=== PATIENT | male | born 1940 | race Caucasian/White ===

== ENCOUNTER → 2020-12-27 | Outpatient (CLI) | payer MEDICARE, OTHER ==
--- NOTE | 2020-12-27 15:25 | XR ---
EXAMINATION TYPE: XR chest 2V DATE OF EXAM: 12/27/2020 COMPARISON: NONE HISTORY: Increasing shortness of breath over last few years. TECHNIQUE: Frontal and lateral views of the chest are obtained. FINDINGS: There is background chronic emphysematous and pulmonary fibrotic change without suspicious focal air space opacity, pleural effusion, or pneumothorax seen. The cardiac silhouette size is mil dly enlarged with atherosclerotic aorta. Metallic stent graft in the abdominal aorta is partially mansoor ged. Multilevel spurring in the spine. IMPRESSION: Mild cardiomegaly and chronic changes without acute pulmonary process.
== END | disposition home or self-care (01) ==
LOC: RADXRYALE 14:46
PROVIDERS: ATTEND Family Medicine
DX: I51.7 Cardiomegaly (principal); R91.8 Other nonspecific abnormal finding of lung field
CPT/HCPCS: 71046

== ENCOUNTER → 2022-09-12 | Outpatient (CLI) | payer MEDICARE, OTHER ==
--- NOTE | 2022-09-12 17:32 | XR ---
EXAMINATION TYPE: XR chest 2V DATE OF EXAM: 09/12/2022 COMPARISON: 12/27/2020 HISTORY: 82-year-old male [id number] shortness of breath TECHNIQUE: Frontal and lateral views FINDINGS: Heart upper limits of normal in size. Atherosclerotic arch calcifications. Hazy lower lung densities are noted. No consolidation or pleural effusion. IMPRESSION: Hazy lower lung density may in part relate to overlying soft tissue. Consider CT of the chest for mor e detailed parenchymal assessment such as for groundglass or fibrotic change.
== END | disposition home or self-care (01) ==
LOC: RADXRYALE 15:49
PROVIDERS: ATTEND Family Medicine
DX: R06.02 Shortness of breath (principal)
CPT/HCPCS: 71046

== ENCOUNTER → 2022-12-16 | Outpatient (CLI) | payer MEDICARE ==
[2022-12-16 18:24] LABS: HCT 42.3 % (39.6-50.0); HGB 13.4 g/dL (13.0-17.0); MCH 30.4 pg (27.0-32.0); MCHC 31.7 g/dL (32.0-37.0); MCV 95.9 fL (80.0-97.0); Mean Platelet Volume 10.9 fL (9.5-12.2); NRBC Per 100 WBC 0.2 /100 WBCS (0.0-0.0); Platelet Count 398 X 10*3/uL (140-440); RBC 4.41 X 10*6/uL (4.40-5.60); RDW 14.7 % (11.5-14.5)
[2022-12-16 19:28] LABS: African American GFR (CKD) 63.9 (60.0-200.0); Anion Gap 12.3 mmol/L (10.00-18.00); Blood Urea Nitrogen 15.6 mg/dL (9.0-27.0); Carbon Dioxide 22.1 mmol/L (20.0-27.5); Non-African American GFR(CKD) 55.1 (60.0-200.0); Potassium 5.2 mmol/L (3.5-5.5)
== END | disposition home or self-care (01) ==
LOC: LABPAT 12:07
PROVIDERS: ATTEND Internal Medicine
DX: Z01.812 Encounter for preprocedural laboratory examination (principal); R07.9 Chest pain, unspecified
CPT/HCPCS: 80051; 82565; 84520; 85027

== ENCOUNTER 2022-12-22 07:09 | Day surgery (SDC) | payer MEDICARE, OTHER ==
[~2022-12-22 07:09] MED LIST: ALPRAZolam 0.25 MG TAB PO PRN; ALPRAZolam 0.5 MG TAB PO PRN; ASPIRIN 325 MG TAB PO STA; ATORVASTATIN 80 MG TAB PO STA; HEPARIN SODIUM,PORCINE 10,000 UNIT in SODIUM CHLORIDE 0.9% 1,000 ML IRRIGATION PRN; HEPARIN SODIUM,PORCINE 2,500 UNIT in SODIUM CHLORIDE 0.9% 250 ML IRRIGATION PRN; NITROGLYCERIN SL TABS 0.4 MG TAB SUBLINGUAL PRN; SODIUM CHLORIDE 0.9% 1,000 ML in EMPTY BAG 1 BAG IV SCH
[2022-12-22] MEDS ORDERED: SODIUM CHLORIDE 0.9% 1,000 ML IV ONE (07:29)
[2022-12-22 07:48] VITALS: RESP 16; TEMP 97.4
[2022-12-22] MEDS ORDERED: VERAPAMIL 2.5 MG/ML 2 ML AMP ONE (08:48)
[2022-12-22] MEDS ORDERED: fentaNYL (PF) 50 MCG/ML 2 ML AMP ONE (09:04)
[2022-12-22] MEDS ORDERED: HEPARIN SODIUM 1,000 UN/ML (10ML VL) ONE (09:05)
[2022-12-22] MEDS ORDERED: fentaNYL (PF) 50 MCG/1 ML VIAL IVP ONE (09:13)
[2022-12-22] MEDS ORDERED: MIDAZOLAM 2 MG/2 ML VIAL IVP ONE (09:13)
[2022-12-22] MEDS ORDERED: LIDOCAINE 1% INJ 10MG/ML (5 ML VIAL-PF) SQ ONE (09:14)
[2022-12-22] MEDS ORDERED: VERAPAMIL SYRINGE (5 MG/10 ML) INTRAARTER ONE (09:15)
[2022-12-22] MEDS ORDERED: HEPARIN SODIUM 1,000 UN/ML (10ML VL) IV ONE (09:17)
[2022-12-22] MEDS ORDERED: IOPAMIDOL-370 100ML BTL INJ ONE (09:24)
--- NOTE | 2022-12-22 09:32 | P.CARDCATH ---
Description of Procedure: PROCEDURES PERFORMED: Left heart catheterization, bilateral coronary angiography INDICATION: Abnormal stress test, angina CONSENT:I have discussed the risks, benefits and alternative therapies for the above-mentioned procedure and for both sedation/analgesia as well as necessary blood product administration, if indicated, as they pertain to this patient. The patient has indicated understanding and acceptance of the risks and procedures discussed. PROCEDURE: After the risks, benefits and alternatives of the above mentioned pro cedure explained in detail with the patient, informed consent was obtained. Patient was taken to the catheterization lab and prepped and draped in usual fashion. 1% lidocaine was used to anesthetize the right radial artery. A 6- Dutch sheath was placed in the right radial artery using modified Seldinger technique. Left coronary angiography was performed with a 5-Dutch JL 3.5 catheter and right coronary angiography was performed with a 5-Dutch JR5 catheter in various views. A 5-Dutch FR5 catheter was inserted into the left ventricle and pressure measurements were obtained. The right radial sheath was removed and a TR band was placed with hemostasis achieved. The patient tolerated the procedure well. Patient was transported back to the post catheterization holding area in stable condition. Conscious Sedation: Patient was monitored under the direct supervision of vision of myself for conscious sedation using Versed and fentanyl for a total duration of 12 minutes HEMODYNAMICS: Aorta: 131/62 LV: 122/5, LVEDP 15 SELECTIVE CORONARY ARTERIOGRAPHY: LEFT MAIN: The left main is a large caliber vessel which bifurcates into the LAD and circumflex. There is a proximal left main 20% stenosis LEFT ANTERIOR DESCENDING CORONARY ARTERY: LAD is a large caliber vessel which wraps around to the apex. There is a proximal LAD 40% stenosis in the mid LAD 30% stenosis. There are [id number] collaterals to the RCA. LEFT CIRCUMFLEX CORONARY ARTERY: Left circumflex is a moderate caliber vessel with mild luminal irregularities RIGHT CORONARY ARTERY: The right coronary artery is a large caliber vessel which gives off a PDA and PLV branch and is the dominant vessel. There is diffuse disease of the RCA with a mid RCA 90% stenosis and a more distal 100% stenosis. FINAL IMPRESSION: 1. CAD as described above including 30-40% LAD stenosis, 20% left main stenosis and 100% distal RCA stenosis with [id number] collaterals 2. Normal left sided filling pressures PLAN: 1. Aggressive risk factor modification per most recent ACC/AHA guidelines. 2. Optimize antianginal medications as able. If still having angina may consider PCI BROWNING PROCESSOR RCA.
[2022-12-22] MEDS ORDERED: LOSARTAN 50 MG TAB PO STA (10:37)
[2022-12-22] MEDS ORDERED: METOPROLOL SUCCINATE (ER) 100 MG TAB.ER.24H PO STA (10:37)
[2022-12-22 20:07] VITALS: BP 142/67; PULSE 62
== END 2022-12-22 14:00 | disposition home or self-care (01) ==
LOC: CATHCVL 07:09
PROVIDERS: ATTEND Internal Medicine
DX: I25.119 Atherosclerotic heart disease of native coronary artery with unspecified angina pectoris (principal); N18.9 Chronic kidney disease, unspecified; I12.9 Hypertensive chronic kidney disease with stage 1 through stage 4 chronic kidney disease, or unspecified chronic kidney disease; E78.5 Hyperlipidemia, unspecified; J44.9 Chronic obstructive pulmonary disease, unspecified; Z87.891 Personal history of nicotine dependence; F10.20 Alcohol dependence, uncomplicated; Z82.49 Family history of ischemic heart disease and other diseases of the circulatory system; Z79.51 Long term (current) use of inhaled steroids; Z79.02 Long term (current) use of antithrombotics/antiplatelets; Z79.899 Other long term (current) drug therapy; Z79.891 Long term (current) use of opiate analgesic
CPT/HCPCS: 93458; C1769; C1894; J2250; J2001; J1644; Q9967; J3010

== ENCOUNTER → 2023-04-24 | Outpatient (CLI) | payer MEDICARE ==
--- NOTE | 2023-04-24 15:14 | XR ---
EXAMINATION TYPE: XR chest 2V DATE OF EXAM: 04/24/2023 COMPARISON: 09/12/22 HISTORY: Shortness of breath TECHNIQUE: Frontal and lateral views of the chest are obtained. FINDINGS: Scattered senescent parenchymal changes noted. Hyperinflation compatible with COPD. No evidence for infiltrate. No evidence for atelectasis. Small left effusion. Heart size is stable. Mediastinal structures are stable and grossly unremarkable. No evidence for hilar prominence. Degenerative changes dorsal spine. IMPRESSION: 1. No evidence for acute pulmonary disease.
== END | disposition home or self-care (01) ==
LOC: RADXRYALE 14:59
PROVIDERS: ATTEND Family Medicine
DX: R06.02 Shortness of breath (principal)
CPT/HCPCS: 71046

== ENCOUNTER 2024-11-20 23:10 | Inpatient (IN) | payer MEDICARE ==
[2024-11-20 23:16] LABS: Glucose,Whole Blood 421 mg/dL (70-110)
--- NOTE | 2024-11-20 23:38 | ED ---
General Adult HPI - General Chief complaint: Chest Pain Stated complaint: Chest pain Time Seen by Provider: 11/20/24 23:12 Source: patient, EMS, RN notes reviewed, old records reviewed Mode of arrival: EMS Limitations: no limitations - History of Present Illness Initial comments: 84-year-old male presenting for evaluation of chest discomfort and mild dyspnea. Patient has some nausea associated with the symptoms symptoms began earlier today. Patient has extensive past medical history currently undergoing rehabilitation at the care home. He denies lower extremity pain or swelling. He also reports dysuria. No measured fever. - Related Data Home Medications Medication Instructions Recorded Confirmed Acetaminophen Tab [Tylenol Tab] 500 mg PO Q4H PRN 12/18/22 12/22/22 Albuterol Nebulized [Ventolin 2.5 mg INHALATION Q6H 12/18/22 12/18/22 Nebulized] Albuterol Sulfate [Proair 1 puff INHALATION Q6H PRN 12/18/22 12/18/22 Respiclick] Budesonide-Formot 160-4.5 Mcg 2 puff INHALATION DAILY 12/18/22 12/22/22 [Symbicort 160-4.5 Mcg Inhaler] Clopidogrel [Plavix] 75 mg PO DAILY 12/18/22 12/22/22 Fenofibrate [Lofibra] 160 mg PO DAILY 12/18/22 12/22/22 Fluticasone Nasal [place] [Flonase 2 sprays INHALATION DAILY 12/18/22 12/22/22 Nasal [place]] Lansoprazole [Prevacid] 30 mg PO DAILY 12/18/22 12/22/22 Montelukast [Singulair] 10 mg PO DAILY 12/18/22 12/22/22 Multivitamins, Thera [Multivitamin 1 tab PO DAILY 12/18/22 12/22/22 (formulary)] Oxybutynin Chloride [Oxybutynin 15 mg PO DAILY 12/18/22 12/22/22 Chloride ER] Metoprolol Succinate (ER) [Toprol 50 mg PO HS 12/22/22 12/22/22 Xl] Metoprolol Succinate (ER) [Toprol 150 mg PO DAILY 12/22/22 12/22/22 Xl] Previous Rx's Medication Instructions Recorded Losartan [Cozaar] 50 mg PO DAILY #90 tab 12/22/22 Allergies Allergy/AdvReac Type Severity Reaction Status Date / Time No Known Allergies Allergy Verified 11/20/24 23:16 Review of Systems ROS Statement: Those systems with pertinent positive or pertinent negative responses have been documented in the HPI. ROS Other: All systems not noted in ROS Statement are negative. Past Medical History Past Medical History: COPD, Diabetes Mellitus, Hyperlipidemia, Hypertension Past Surgical History: Hernia Repair Smoking Status: Former smoker Past Alcohol Use History: None Reported Past Drug Use History: None Reported General Exam Limitations: no limitations General appearance: alert, in no apparent distress Head exam: Present: atraumatic, normocephalic Eye exam: Present: normal appearance, PERRL Respiratory exam: Present: decreased breath sounds. Absent: respiratory distress Cardiovascular Exam: Present: tachycardia, irregular rhythm GI/Abdominal exam: Present: soft. Absent: distended, tenderness, guarding Extremities exam: Present: normal inspection, normal capillary refill. Absent: calf tenderness Neurological exam: Present: alert, oriented X3 Psychiatric exam: Present: normal affect, normal mood Skin exam: Present: warm, dry, intact, pallor Course Vital Signs 11/20/24 11/20/24 11/20/24 23:16 23:27 23:35 Temperature 98.0 F Pulse Rate 120 H Respiratory 19 19 Rate Blood Pressure 138/81 O2 Sat by Pulse 82 L 92 L Oximetry 11/21/24 11/21/24 01:25 02:00 Temperature Pulse Rate 91 91 Respiratory 22 21 Rate Blood Pressure 117/66 128/66 O2 Sat by Pulse 97 95 Oximetry Medical Decision Making - Medical Decision Making Was pt. sent in by a medical professional or institution (, PA, PROTOTYPE ENGINEER, urgent care, hospital, or care home...) When possible be specific @ -No Did you speak to anyone other than the patient for history (EMS, parent, family, police, friend...)? What history was obtained from this source @ -No Did you review nursing and triage notes (agree or disagree)? Why? @ -I reviewed and agree with nursing and triage notes Were old charts reviewed (outside hosp., previous admission, EMS record, old E KG, old radiological studies, urgent care reports/EKG's, care home records)? Report findings @ -No old charts were reviewed EKG interpreted by me (3pts min.). @ -Sinus tachycardia versus atrial fibrillation with RVR with a rate of 120, right bundle branch block, QRS duration 130, QTc [address] segment elevation. X-rays interpreted by me (1pt min.). @ -Chest x-ray showing left-sided pleural effusion and central pulmonary vascular congestion CT interpreted by me (1pt min.). @ -None done U/S interpreted by me (1pt. min.). @ -None done What testing was considered but not performed or refused? (CT, X-rays, U/S, labs)? Why? @ -None What meds were considered but not given or refused? Why? @ -None Did you discuss the management of the patient with other professionals (professionals i.e. Dr., PA, PROTOTYPE ENGINEER, lab, RT, psych nurse, social sciences research scientist, cross tie turner, teacher, global chief experience officer, manager of case)? Give summary @ -Case discussed with Dr. Ortiz who will admit. Case discussed with Dr. Lr covering for cardiology, regarding elevated troponin and recent GI bleed. No heparin at this time, patient is chest pain-free. Was smoking cessation discussed for >3mins.? @ -No Was critical care preformed (if so, how long)? @ -No Were there social determinants of health that impacted care today? How? ( Homelessness, low income, unemployed, alcoholism, drug addiction, transportation, low edu. Level, literacy, decrease access to med. care, nursing home, rehab)? @ -No Was there de-escalation of care discussed even if they declined (Discuss DNR or withdrawal of care, Hospice)? DNR status @ -No What co-morbidities impacted this encounter? (DM, HTN, Smoking, COPD, CAD, Cancer, CVA, ARF, Chemo, Hep., AIDS, mental health diagnosis, sleep apnea, morbid obesity)? @ -Diabetes, CHF, debility Was patient admitted / discharged? Hospital course, mention meds given and route, prescriptions, significant lab abnormalities, going to OR and other pertinent info. @ -84-year-old male presenting from the care home with us chest pain and dyspnea as well as urinary frequency urgency and dysuria. Patient does test positive for UTI and is started on ceftriaxone. Urine culture pending. Patient has minimally elevated troponin at 0.038 and mildly elevated BNP. His chest x- ray does show CHF. He is given Lasix in the emergency department. He will be admitted for serial cardiac enzymes. He is admitted to Dr. Ortiz. Cardiology is placed on consult. Undiagnosed new problem with uncertain prognosis? @ -No Drug Therapy requiring intensive monitoring for toxicity (Heparin, Nitro, Insulin, Cardizem)? @ -No Were any procedures done? @ -No Diagnosis/symptom? @ -Chest pain, CHF, UTI Acute, or Chronic, or Acute on Chronic? @Acute Uncomplicated (without systemic symptoms) or Complicated (systemic symptoms)? @ -Default Side effects of treatment? @ -No Exacerbation, Progression, or Severe Exacerbation? @ -No Poses a threat to life or bodily function? How? (Chest pain, [place], [place], pneumonia, PE, COPD, DKA, ARF, appy, cholecystitis, CVA, Diverticulitis, Homicidal, Suicidal, threat to staff... and all critical care pts) @ -Yes, [place], CHF, sepsis - Lab Data Result diagrams: 11/20/24 23:16 11/20/24 23:28 Lab Results 11/20/24 11/20/24 11/20/24 Range/Units 23:14 23:16 23:28 WBC 16.2 H (3.8-10.6) k/uL RBC 3.44 L (4.30-5.90) m/uL Hgb 9.5 L (13.0-17.5) gm/dL Hct 31.3 L (39.0-53.0) % MCV 91.0 (80.0-100.0) fL MCH 27.7 (25.0-35.0) pg MCHC 30.5 L (31.0-37.0) g/dL RDW 16.4 H (11.5-15.5) % Plt Count 443 (150-450) k/uL MPV 6.7 Neutrophils % 92 % Lymphocytes % 3 % Monocytes % 5 % Eosinophils % 0 % Basophils % 0 % Neutrophils # 14.8 H (1.3-7.7) k/uL Lymphocytes # 0.4 L (1.0-4.8) k/uL Monocytes # 0.8 (0-1.0) k/uL Eosinophils # 0.1 (0-0.7) k/uL Basophils # 0.0 (0-0.2) k/uL Hypochromasia Marked Anisocytosis Slight PT (10.0-12.5) sec INR (<1.2) APTT (22.0-30.0) sec Sodium 133 L (137-145) mmol/L Potassium 4.3 (3.5-5.1) mmol/L Chloride 94 L (98-107) mmol/L Carbon Dioxide 31 H (22-30) mmol/L Anion Gap 8 mmol/L BUN 23 H (9-20) mg/dL Creatinine 0.80 (0.66-1.25) mg/dL Est GFR (CKD-EPI)AfAm >90 (>60 ml/min/1.73 sqM) Est GFR (CKD-EPI)NonAf 84 (>60 ml/min/1.73 sqM) Glucose 398 H (74-99) mg/dL POC Glucose (mg/dL) 421 H (70-110) mg/dL POC Glu Blower Mechanic ID [facility] Calcium 8.8 (8.4-10.2) mg/dL Magnesium 1.4 L (1.6-2.3) mg/dL Total Bilirubin 0.5 (0.2-1.3) mg/dL AST 26 (17-59) U/L ALT 34 (4-49) U/L Alkaline Phosphatase 84 (38-126) U/L Troponin I (0.000-0.034) ng/mL NT-Pro-B Natriuret Pep 1620 pg/mL Total Protein 5.6 L (6.3-8.2) g/dL Albumin 3.0 L (3.5-5.0) g/dL Urine Color Urine Appearance (Clear) Urine pH (5.0-8.0) Ur Specific [place] (1.001-1.035) Urine Protein (Negative) Urine Glucose (UA) (Negative) Urine Ketones (Negative) Urine Blood (Negative) Urine Nitrite (Negative) Urine Bilirubin (Negative) Urine Urobilinogen (<2.0) mg/dL Ur Leukocyte Esterase (Negative) Urine RBC (0-5) /hpf Urine WBC (0-5) /hpf Calcium Oxalate Crystal (None) /hpf Urine Bacteria (None) /hpf Hyaline Casts (0-2) /lpf Urine Mucus (None) /hpf Urine Yeast (Budding) (None) /hpf 11/20/24 11/21/24 11/21/24 Range/Units 23:28 00:27 00:45 WBC (3.8-10.6) k/uL RBC (4.30-5.90) m/uL Hgb (13.0-17.5) gm/dL Hct (39.0-53.0) % MCV (80.0-100.0) fL MCH (25.0-35.0) pg MCHC (31.0-37.0) g/dL RDW (11.5-15.5) % Plt Count (150-450) k/uL MPV Neutrophils % % Lymphocytes % % Monocytes % % Eosinophils % % Basophils % % Neutrophils # (1.3-7.7) k/uL Lymphocytes # (1.0-4.8) k/uL Monocytes # (0-1.0) k/uL Eosinophils # (0-0.7) k/uL Basophils # (0-0.2) k/uL Hypochromasia Anisocytosis PT 10.4 (10.0-12.5) sec INR 0.9 (<1.2) APTT 18.5 L (22.0-30.0) sec Sodium (137-145) mmol/L Potassium (3.5-5.1) mmol/L Chloride (98-107) mmol/L Carbon Dioxide (22-30) mmol/L Anion Gap mmol/L BUN (9-20) mg/dL Creatinine (0.66-1.25) mg/dL Est GFR (CKD-EPI)AfAm (>60 ml/min/1.73 sqM) Est GFR (CKD-EPI)NonAf (>60 ml/min/1.73 sqM) Glucose (74-99) mg/dL POC Glucose (mg/dL) (70-110) mg/dL POC Glu Blower Mechanic ID Calcium (8.4-10.2) mg/dL Magnesium (1.6-2.3) mg/dL Total Bilirubin (0.2-1.3) mg/dL AST (17-59) U/L ALT (4-49) U/L Alkaline Phosphatase (38-126) U/L Troponin I 0.038 H* (0.000-0.034) ng/mL NT-Pro-B Natriuret Pep pg/mL Total Protein (6.3-8.2) g/dL Albumin (3.5-5.0) g/dL Urine Color Yellow Urine Appearance Cloudy (Clear) Urine pH 5.5 (5.0-8.0) Ur Specific [place] 1.025 (1.001-1.035) Urine Protein 1+ H (Negative) Urine Glucose (UA) 4+ H (Negative) Urine Ketones Trace H (Negative) Urine Blood Negative (Negative) Urine Nitrite Negative (Negative) Urine Bilirubin Negative (Negative) Urine Urobilinogen 2.0 (<2.0) mg/dL Ur Leukocyte Esterase Large H (Negative) Urine RBC 68 H (0-5) /hpf Urine WBC >182 H (0-5) /hpf Calcium Oxalate Crystal Many H (None) /hpf Urine Bacteria Few H (None) /hpf Hyaline Casts 26 H (0-2) /lpf Urine Mucus Few H (None) /hpf Urine Yeast (Budding) Many H (None) /hpf Disposition Clinical Impression: CHF (congestive heart failure), UTI (urinary tract infection), Chest pain Disposition: ADMITTED IP TO THIS HOSP Condition: Stable Is patient prescribed a controlled substance at d/c from ED?: No Time of Disposition: 02:24
[2024-11-20 23:44] LABS: Anisocytosis Slight; Basophils % (A) 0 %; Eosinophils # (A) 0.1 k/uL (0-0.7); Eosinophils % (A) 0 %; HCT 31.3 % (39.0-53.0); HGB 9.5 gm/dL (13.0-17.5); Hypochromasia Marked; Lymphocytes # (A) 0.4 k/uL (1.0-4.8); Lymphocytes % (A) 3 %; MCH 27.7 pg (25.0-35.0); MCHC 30.5 g/dL (31.0-37.0); Mean Platelet Volume 6.7; Monocytes # (A) 0.8 k/uL (0-1.0); Monocytes % (A) 5 %; Neutrophils # (A) 14.8 k/uL (1.3-7.7); Neutrophils % (A) 92 %; Platelet Count 443 k/uL (150-450); RBC 3.44 m/uL (4.30-5.90); RDW 16.4 % (11.5-15.5); WBC 16.2 k/uL (3.8-10.6)
[2024-11-20 23:52] LABS: ALT 34 U/L (4-49); AST 26 U/L (17-59); African American GFR (CKD) >90 (>60 ml/min/1.73 sqM); Alkaline Phosphatase 84 U/L (38-126); Anion Gap 8 mmol/L; Blood Urea Nitrogen 23 mg/dL (9-20); Calcium 8.8 mg/dL (8.4-10.2); Carbon Dioxide 31 mmol/L (22-30); Chloride 94 mmol/L (98-107); Glucose 398 mg/dL (74-99); Magnesium 1.4 mg/dL (1.6-2.3); Non-African American GFR(CKD) 84 (>60 ml/min/1.73 sqM); Potassium 4.3 mmol/L (3.5-5.1); Sodium 133 mmol/L (137-145); Total Bilirubin 0.5 mg/dL (0.2-1.3); Total Protein 5.6 g/dL (6.3-8.2)
[2024-11-20 23:59] LABS: NT-Pro-B-Type Natriuretic Pept 1620 pg/mL
[2024-11-21 00:54] LABS: INR 0.9 (<1.2); Prothrombin Time 10.4 sec (10.0-12.5)
[2024-11-21 01:06] LABS: Partial Thromboplastin Time 18.5 sec (22.0-30.0)
[2024-11-21 01:44] LABS: Appearance,Urine Cloudy (Clear); Bacteria,Urine Few /hpf; Bilirubin,Urine Negative (Negative); Blood,Urine Negative (Negative); Budding Yeast,Urine Many /hpf; Calcium Oxalate Crystals,Urine Many /hpf; Color,Urine Yellow; Glucose,Urine (UA) 4+ (Negative); Hyaline Casts,Urine 26 /lpf (0-2); Ketones,Urine Trace (Negative); Leukocyte Esterase,Urine Large (Negative); Mucus,Urine Few /hpf; Nitrite,Urine Negative (Negative); PH, Urine 5.5 (5.0-8.0); Protein,Urine 1+ (Negative); RBC,Urine 68 /hpf (0-5); Specific Gravity,Urine 1.025 (1.001-1.035); WBC,Urine >182 /hpf (0-5)
--- NOTE | 2024-11-21 01:59 | XR ---
EXAM: XR Chest, 2 Views CLINICAL HISTORY: ITS.REASON XR Reason: Chest Pain TECHNIQUE: Frontal and lateral views of the chest. COMPARISON: Prior chest x-ray from November 04, 2024. FINDINGS: Lungs: Bronchitis with pneumonitis. Pleural space: Large left pleural effusion. No pneumothorax. Heart: Unremarkable. No cardiomegaly. Mediastinum: Unremarkable. Normal mediastinal contour. Bones/joints: Unremarkable. No acute fracture. IMPRESSION: Bronchitis with pneumonitis and large left pleural effusion.
[2024-11-21] MEDS: cefTRIAXone IN SWFI 1,000 MG/10 ML SYRINGE IVP STA (02:16)
[2024-11-21] MEDS ORDERED: NALOXONE 0.4 MG/ML 1 ML VIAL IV PRN (02:18)
[2024-11-21] MEDS: FUROSEMIDE 10 MG/ML 4 ML VIAL IV STA (02:28)
[2024-11-21] MEDS: MAGNESIUM SULFATE-D5W PMX 1 GM in DEXTROSE/WATER 1 100ML.BAG IVPB ONE ×2 (02:29→06:25)
[2024-11-21] MEDS ORDERED: HEPARIN SODIUM 1,000 UN/ML (10ML VL) IV PRN (04:44)
[2024-11-21] MEDS: HEPARIN SOD,PORK IN 0.45% NACL 25,000 UNIT in 0.45% NACL 1 250ML.BAG IV SCH (04:53)
[2024-11-21] MEDS: HEPARIN SODIUM 1,000 UN/ML (10ML VL) IV ONE (04:53)
--- NOTE | 2024-11-21 05:01 | P.HPIM ---
History of Present Illness H&P Date: 11/21/24 Chief Complaint: Chest pain, urinary tract infection Patient is a 84-year-old male with History of AAA status post endovascular repair, hypertension, previous tobacco abuse and quit 30 years ago, hyperlipidemia, mild alcohol use, coronary artery disease including 30 to 40% L AD stenosis, 20% left main stenosis and 100% distal RCA stenosis with [id number] collaterals, type II diabetes mellitus, cirrhosis and COPD normally on 2 L continuous presented to the emergency department for chest pain and shortness of breath. Patient has had significant hospitalization history over the past 2 months and in August had to get the fluid drained from his chest cavity at [facility]. Patient is currently living at [facility] for rehab. Patient reported that while using the bathroom last night around 10 PM, he had a sudden onset pressure-like substernal chest pain that started when he was standing up from the toilet. He has never felt anything like this before. He reports the chest pain to be 8 out of 10 intensity, constant, nonradiating, did not improve with sitting down and supplemental oxygen. Alongside with the chest pain, patient also reported shortness of breath that started around similar time. Patient also endorsed periumbilical belly pain and dysuria that has been going on for the past few days. Did endorse an episode of vomiting earlier last night around 10 PM with no hematemesis. Patient denies fever, chills, lightheadedness, dizziness, diarrhea, constipation, melena/hematochezia, lower extremity swelling, tingling/numbness sensation in upper and lower extremities. ED documentation reviewed. In the ED patient was treated with Rocephin 1000 mg I V x 1, Lasix 40 mg IV x 1 Vitals on admission temperature 98, pulse rate 91, respiratory rate 22, blood pressure 117/66, O2 sat 97% on nasal cannula at 5 L/min EKG independently interpreted as sinus tachycardia with occasional supraventricular premature complexes with a ventricular rate of 120 bpm, possible right ventricular hypertrophy, QTc interval of 398 ms, with ST-segment depression noted in leads V2-V4. CXR shows bronchitis with pneumonitis and large left pleural effusion. Labs on admission show WBC 16.2, hemoglobin 9.5, hematocrit 31.3, platelets 443, neutrophils 14.8, PT 10.4, PTT 18.5, INR 0.9, sodium 133, potassium 4.3, chloride 94, carbon dioxide 31, BUN 23, creatinine 0.8, glucose 398, magnesium 1.4, troponin 0.038, BNP 1620 UA shows cloudy urine, negative for urine nitrites, large leukocyte esterase, few bacteria Review of systems: Pertinent positives and negatives as discussed in HPI, a complete review of systems was performed and all other systems are negative. PMH: History of AAA status post endovascular repair, hypertension, previous tobacco abuse and quit 30 years ago, hyperlipidemia, mild alcohol use, coronary artery disease including 30 to 40% LAD stenosis, 20% left main stenosis and 100% distal RCA stenosis with [id number] collaterals, type II diabetes mellitus, cirrhosis and COPD normally on 2 L nasal cannula continuous PSH: Adenoidectomy, heart catheterization, hernia repair, tonsillectomy, AAA status post endovascular repair FMH: No pertinent family history Allergies: No known drug allergies Social history: Tobacco: Former smoker Alcohol: None reported Recreational drugs: No drug use Travel: No travel history Sick contacts: No sick contacts Physical examination: Vital signs reviewed General: nontoxic, no distress, appears at stated age Derm: warm, dry, intact Head: atraumatic, normocephalic, symmetric Eyes: EOMI, anicteric sclera Mouth: no lip lesion, mucus membranes moist Cardiovascular: S1 S2 reg, no murmur Lungs: CTA bilateral, no rhonchi, no rales, no accessory muscle use Abdominal: soft, periumbilical region slightly tender to palpation, no distention Musculoskeletal: Excello sized pressure ulcer on the left buttock Extremities: No cyanosis, clubbing, lower extremity swelling Neuro: Alert, Gross neurological examination did not reveal any focal deficits. Cranial nerves II to XII grossly intact. Bilateral upper and lower extremity muscle strength 5 out of 5 and sensation intact. Psych: well appearing, appropriate affect Assessment/Plan: Patient is a 84-year-old male with History of AAA status post endovascular repair, hypertension, previous tobacco abuse and quit 30 years ago, hyperlipidemia, mild alcohol use, coronary artery disease including 30 to 40% LAD stenosis, 20% left main stenosis and 100% distal RCA stenosis with [id number] collaterals, type II diabetes mellitus, cirrhosis and COPD normally on 2 L nasal cannula continuous presented to the emergency department for chest pain and shortness of breath. Patient will be admitted to inpatient medicine service. Active: #. NSTEMI Troponin 0.038, 1.290 Trend troponin Continue cardiac monitoring Consult cardiology Start atorvastatin 40 mg daily Start aspirin 81 mg daily Lipid panel Patient currently chest pain free Hold off on Heparin as patient recently had a large GI bleed requiring transfusions at another facility 2 weeks ago #. Urinary tract infection UA shows cloudy urine, negative for urine nitrites, large leukocyte esterase, few bacteria Rocephin 1000 mg IV x 1 given by ED Start ceftriaxone 1 g IV every 24 hours Obtain urine culture #. Leukocytosis WBC 16.2 Left shift neutrophils 14.8 Likely a result of underlying urinary tract infection Monitor morning CBC #. Normocytic anemia Hemoglobin 9.5 MCV 91 Patient denied hematemesis, melena, hematochezia Monitor morning CBC #. Hyponatremia Sodium 133 Initiate normal saline at 75 cc an hour Monitor morning CMP #. Hyperglycemia, with a history of type 2 diabetes mellitus Blood glucose of 398 Initiate sliding scale insulin Hold home diabetic medications #. Hypomagnesemia Magnesium 1.4 Initiate magnesium sulfate 2 g IV Monitor magnesium level #. Pressure ulcer on the left buttock Consult wound care Chronic: #. Hypertension #. Hyperlipidemia #. GERD #. History of COPD on home oxygen at 2 L/min continuous Resume home meds once confirmed with pharmacy F: No restrictions E: Replete as needed N: Heart healthy diet A: EMS DVT prophylaxis: IPCDs The patient is admitted with an anticipated more than 2 midnight stay for evaluation of chest pain and UTI CODE STATUS: Full code Discussed with: Patient Anticipated discharge place: Home Past Medical History Past Medical History: COPD, Diabetes Mellitus, Hyperlipidemia, Hypertension Additional Past Medical History / Comment(s): type 2 DM, anemia, cirrhosis, plural effusion, History of Any Multi-Drug Resistant Organisms: VRE Past Surgical History: Hernia Repair Additional Past Surgical History / Comment(s): AAA Smoking Status: Former smoker Past Alcohol Use History: None Reported Past Drug Use History: None Reported Medications and Allergies Home Medications Medication Instructions Recorded Confirmed Type Acetaminophen Tab [Tylenol Tab] 500 mg PO Q4H PRN 12/18/22 12/22/22 History Albuterol Nebulized [Ventolin 2.5 mg INHALATION Q6H 12/18/22 12/18/22 History Nebulized] Albuterol Sulfate [Proair 1 puff INHALATION Q6H PRN 12/18/22 12/18/22 History Respiclick] Budesonide-Formot 160-4.5 Mcg 2 puff INHALATION DAILY 12/18/22 12/22/22 History [Symbicort 160-4.5 Mcg Inhaler] Clopidogrel [Plavix] 75 mg PO DAILY 12/18/22 12/22/22 History Fenofibrate [Lofibra] 160 mg PO DAILY 12/18/22 12/22/22 History Fluticasone Nasal [place] [Flonase 2 sprays INHALATION DAILY 12/18/22 12/22/22 History Nasal [place]] Lansoprazole [Prevacid] 30 mg PO DAILY 12/18/22 12/22/22 History Montelukast [Singulair] 10 mg PO DAILY 12/18/22 12/22/22 History Multivitamins, Thera [Multivitamin 1 tab PO DAILY 12/18/22 12/22/22 History (formulary)] Oxybutynin Chloride [Oxybutynin 15 mg PO DAILY 12/18/22 12/22/22 History Chloride ER] Losartan [Cozaar] 50 mg PO DAILY #90 tab 12/22/22 Rx Metoprolol Succinate (ER) [Toprol 50 mg PO HS 12/22/22 12/22/22 History Xl] Metoprolol Succinate (ER) [Toprol 150 mg PO DAILY 12/22/22 12/22/22 History Xl] Allergies Allergy/AdvReac Type Severity Reaction Status Date / Time No Known Allergies Allergy Verified 11/20/24 23:16 Physical Exam Vitals: Vital Signs Temp Pulse Resp BP Pulse Ox 11/21/24 01:25 91 22 117/66 97 11/20/24 23:35 19 11/20/24 23:27 92 L 11/20/24 23:16 98.0 F 120 H 19 138/81 82 L Intake and Output 11/20/24 11/20/24 11/21/24 14:59 22:59 06:59 Other: Weight 79.379 kg Results CBC & Chem 7: 11/20/24 23:16 11/20/24 23:28 Labs: Abnormal Lab Results - Last 24 Hours (Table) 11/20/24 11/20/24 11/20/24 Range/Units 23:14 23:16 23:28 WBC 16.2 H (3.8-10.6) k/uL RBC 3.44 L (4.30-5.90) m/uL Hgb 9.5 L (13.0-17.5) gm/dL Hct 31.3 L (39.0-53.0) % MCHC 30.5 L (31.0-37.0) g/dL RDW 16.4 H (11.5-15.5) % Neutrophils # 14.8 H (1.3-7.7) k/uL Lymphocytes # 0.4 L (1.0-4.8) k/uL APTT (22.0-30.0) sec Sodium 133 L (137-145) mmol/L Chloride 94 L (98-107) mmol/L Carbon Dioxide 31 H (22-30) mmol/L BUN 23 H (9-20) mg/dL Glucose 398 H (74-99) mg/dL POC Glucose (mg/dL) 421 H (70-110) mg/dL Magnesium 1.4 L (1.6-2.3) mg/dL Troponin I (0.000-0.034) ng/mL Total Protein 5.6 L (6.3-8.2) g/dL Albumin 3.0 L (3.5-5.0) g/dL Urine Protein (Negative) Urine Glucose (UA) (Negative) Urine Ketones (Negative) Ur Leukocyte Esterase (Negative) Urine RBC (0-5) /hpf Urine WBC (0-5) /hpf Calcium Oxalate Crystal (None) /hpf Urine Bacteria (None) /hpf Hyaline Casts (0-2) /lpf Urine Mucus (None) /hpf Urine Yeast (Budding) (None) /hpf 11/20/24 11/21/24 11/21/24 Range/Units 23:28 00:27 00:45 WBC (3.8-10.6) k/uL RBC (4.30-5.90) m/uL Hgb (13.0-17.5) gm/dL Hct (39.0-53.0) % MCHC (31.0-37.0) g/dL RDW (11.5-15.5) % Neutrophils # (1.3-7.7) k/uL Lymphocytes # (1.0-4.8) k/uL APTT 18.5 L (22.0-30.0) sec Sodium (137-145) mmol/L Chloride (98-107) mmol/L Carbon Dioxide (22-30) mmol/L BUN (9-20) mg/dL Glucose (74-99) mg/dL POC Glucose (mg/dL) (70-110) mg/dL Magnesium (1.6-2.3) mg/dL Troponin I 0.038 H* (0.000-0.034) ng/mL Total Protein (6.3-8.2) g/dL Albumin (3.5-5.0) g/dL Urine Protein 1+ H (Negative) Urine Glucose (UA) 4+ H (Negative) Urine Ketones Trace H (Negative) Ur Leukocyte Esterase Large H (Negative) Urine RBC 68 H (0-5) /hpf Urine WBC >182 H (0-5) /hpf Calcium Oxalate Crystal Many H (None) /hpf Urine Bacteria Few H (None) /hpf Hyaline Casts 26 H (0-2) /lpf Urine Mucus Few H (None) /hpf Urine Yeast (Budding) Many H (None) /hpf
[2024-11-21] MEDS ORDERED: DEXTROSE 50% SYRINGE 50 ML IVP PRN ×2 (05:38)
[2024-11-21 06:35] LABS: Glucose,Whole Blood 207 mg/dL (70-110)
[2024-11-21] MEDS: NITROGLYCERIN OINT 1 INCH/GM PACKET TOPICAL SCH (09:19)
[2024-11-21 09:20] LABS: Glucose,Whole Blood 202 mg/dL (70-110)
[2024-11-21] MEDS: INSULIN ASPART (NovoLOG) 100 UNIT/ML VIAL SQ SCH ×2 (09:39→18:03)
[2024-11-21] MEDS: ASPIRIN 81 MG PO SCH (09:39)
[2024-11-21] MEDS: ATORVASTATIN 40 MG TAB PO SCH (09:40)
--- NOTE | 2024-11-21 09:41 | P.CON ---
Consult Note - . Consult date: 11/21/24 Assessment/Plan:: wound care consultation: Reason for consultation: Decubitus left buttocks History chief complaint: The patient is a rather poor historian. However, he does tell me's had pressure ulcers before. He has a new ulcer on the posterior aspect of the left buttocks near the sacrum. He is currently hospitalized for confusion and cardiac issues. Pertinent physical examination: Patient has an area of redness on the right buttocks posteriorly just lateral to the sacrum. On the left buttocks just lateral to the sacrum he has an area of some skin breakdown and excoriation. Impression: Stage II decubitus left buttocks. Stage I decubitus right buttocks. Recommendation: At this point would simply try to keep the patient off of the area by rotating him [id number]. A sheets we will orbital cushion may be of some assistance. Would recommend simply using triad as a protective lotion over the areas in question. Bordered foam could also be placed over the triad to add protection. Please let us know if further assistance is needed.
--- NOTE | 2024-11-21 12:01 | P.CRDCN ---
History of Present Illness Consult date: 11/21/24 Requesting physician: Bj Ortiz Reason for Consult (text): chest pain Chief complaint: chest pain, shortness of breath History of present illness: This is a pleasant 84-year-old male patient followed in the past with Dr. Phoenix but most recently has been following with Dr. Ortiz with past medical history of AAA status post endovascular repair, hypertension, prior tobacco abuse quit 30 years ago, hyperlipidemia, CAD, diabetes type 2, COPD. Over the past 2 months has been hospitalized for pleural effusion and required thoracentesis done at [facility]. Also history of recent severe GI bleed with severe anemia requiring transfusion. According to the patient he also underwent placement of a filter by Dr. Francis done recently at [facility]. he has been at [facility] for rehab. Presented to the emergency department with complaints of shortness of breath and sudden onset chest discomfort after getting up off the toilet. At the time my examination patient is resting comfortably in the ER. Denies any current complaints of chest discomfort. Diagnostics -EKG: Sinus tachycardia with right bundle branch block -Chest x-ray: Sinus with pneumonitis and large left pleural effusion -Laboratory studies: Blood cell count 16.2, hemoglobin 9.5, sodium 133, BUN 23, creatinine 0.8, NT proBNP 1620. Troponin 0.038, 1.29 and third pending -Home cardiac medications: Metoprolol succinate 25 mg p.o. daily, Lasix 40 mg p.o. daily, ezetimibe 10 mg p.o. nightly and aspirin 81 mg p.o. daily -Prior stress test: November 2022 inferior ischemia -Echocardiogram: January 2023 EF 50% -Cardiac catheterization: November 2022 30 to 40% LAD stenosis, 20% left main stenosis and 100% distal RCA stenosis with [id number] collaterals Review Of Systems: At the time of my exam: CONSTITUTIONAL: Denies fever or chills. HEENT: Denies blurred vision, vision changes. CARDIOVASCULAR: Denies chest pain. Denies orthopnea. Denies PND. Denies palpitations, dizziness, or syncope. RESPIRATORY: Mild shortness of breath. No wheezing, or cough. Denies hemoptysis. GASTROINTESTINAL: Denies abdominal pain. Denies nausea or vomiting. Denies bleeding. HEMATOLOGIC: Denies bleeding disorders. GENITOURINARY: Denies hematuria. SKIN: Denies puritis. Denies rash. PHYSICAL EXAMINATION: This is a 84-year-old gentleman in no apparent distress at the time of my examination. VITAL SIGNS: Reviewed. HEENT: Head is atraumatic, normocephalic. Pupils are equal, round. Sclerae anicteric. Conjunctivae are clear. Mucous membranes of the mouth are moist. Neck is supple. There is no elevated jugular venous pressure. No carotid bruit is heard. CHEST EXAMINATION: Clear to auscultation bilaterally. No wheezes rales or rhonchi. Respirations even and nonlabored. HEART EXAMINATION: Heart regular, positive S1 and S2. No S3. No S4. Soft systolic murmur. ABDOMEN: Soft, nontender. Bowel sounds are heard. No organomegaly noted. EXTREMITIES: 2+ peripheral pulses with evidence of trace peripheral edema and no calf tenderness noted. NEUROLOGIC EXAMINATION: Patient is awake, alert and oriented x3. Assessment: 1. NSTEMI 2. CAD with known total occluded RCA 3. Recent severe GI bleed requiring transfusions 4. Pleural effusion, status post recent centesis 5. Recent filter insertion Plan: From cardiology's perspective we will obtain a 2D echo with Doppler study. We will obtain records from both [facility] and [facility]. Hold off on heparinizing the patient at this time due to recent severe GI bleed. Continue to trend the troponins. We will continue to follow the patient provide further recommendations accordingly. Thank you kindly for this consultation. Nurse practitioner note has been reviewed, I agree with documented findings and plan of care. Patient was seen and examined. Past Medical History Past Medical History: COPD, Diabetes Mellitus, Hyperlipidemia, Hypertension Additional Past Medical History / Comment(s): type 2 DM, anemia, cirrhosis, plural effusion, History of Any Multi-Drug Resistant Organisms: VRE Past Surgical History: Hernia Repair Additional Past Surgical History / Comment(s): AAA Smoking Status: Former smoker Past Alcohol Use History: None Reported Past Drug Use History: None Reported Medications and Allergies Home Medications Medication Instructions Recorded Confirmed Type Acetaminophen Tab [Tylenol Tab] 1,000 mg PO Q6H PRN 12/18/22 11/21/24 History Multivitamins, Thera [Multivitamin 1 tab PO DAILY 12/18/22 11/21/24 History (formulary)] Amoxic-Pot Clav 875-125Mg 1 tab PO BID 11/21/24 11/21/24 History [Augmentin 875-125] Ascorbic Acid [Vitamin C] 500 mg PO DAILY 11/21/24 11/21/24 History Aspirin 81 mg PO DAILY 11/21/24 11/21/24 History Benzonatate [Tessalon Perles] 100 mg PO TID PRN 11/21/24 11/21/24 History Ezetimibe [Zetia] 10 mg PO HS 11/21/24 11/21/24 History Ferrous Sulfate [Feosol] 325 mg PO DAILY 11/21/24 11/21/24 History Furosemide [Lasix] 40 mg PO DAILY 11/21/24 11/21/24 History INSULIN LISPRO (HumaLOG) [humaLOG] 4 units SQ ACHS 11/21/24 11/21/24 History INSULIN LISPRO (HumaLOG) [humaLOG] See Protocol SQ ACHS 11/21/24 11/21/24 History Insulin Glargine [Lantus Vial] 14 unit SQ DAILY@0600 11/21/24 11/21/24 History Ipratropium-Albuterol Nebulize 3 ml INHALATION RT-Q6H 11/21/24 11/21/24 History [Duoneb 0.5 mg-3 mg/3 ml Soln] Lidocaine 5% Patch [Lidoderm] 1 patch TOPICAL DAILY 11/21/24 11/21/24 History Metoprolol Succinate (ER) [Toprol 25 mg PO DAILY 11/21/24 11/21/24 History Xl] Omeprazole [PriLOSEC] 20 mg PO DAILY 11/21/24 11/21/24 History Salmeterol 50 mcg [Serevent Diskus] 1 puff INHALATION RT-Q12H 11/21/24 11/21/24 History Sennosides/Docusate Sodium [Senna 2 tab PO DAILY 11/21/24 11/21/24 History Plus 8.6-50 mg Tablet] Simethicone Chew [Mylicon Chew] 80 mg PO QID PRN 11/21/24 11/21/24 History Sodium Chloride [Saline Mist] 1 spray EA NOSTRIL Q2H PRN 11/21/24 11/21/24 History Triamcinolone 0.1% Cream [Kenalog 1 applic TOPICAL BID 11/21/24 11/21/24 History 0.1% Cream] Z-Guard 1 applic TOPICAL HS 11/21/24 11/21/24 History guaiFENesin [guaiFENesin Oral 200 mg PO QID PRN 11/21/24 11/21/24 History Solution] methocarbamoL [Robaxin] 500 mg PO TID 11/21/24 11/21/24 History polyethylene glycoL 3350 [Miralax] 17 gm PO DAILY 11/21/24 11/21/24 History predniSONE See Taper PO DAILY 11/21/24 11/21/24 History Allergies Allergy/AdvReac Type Severity Reaction Status Date / Time No Known Allergies Allergy Verified 11/21/24 09:53 Physical Exam Vitals: Vital Signs Temp Pulse Resp BP Pulse Ox 11/21/24 11:19 98 20 114/55 96 11/21/24 09:14 89 20 129/65 98 11/21/24 06:00 85 17 133/80 97 11/21/24 02:00 91 21 128/66 95 11/21/24 01:25 91 22 117/66 97 11/20/24 23:35 19 11/20/24 23:27 92 L 11/20/24 23:16 98.0 F 120 H 19 138/81 82 L Intake and Output 11/20/24 11/21/24 11/21/24 22:59 06:59 14:59 Other: Weight 79.379 kg Results 11/20/24 23:16 11/20/24 23:28 Cardiac Enzymes 11/20/24 11/20/24 11/21/24 Range/Units 23:28 23:28 03:35 AST 26 (17-59) U/L Troponin I 0.038 H* 1.290 H* (0.000-0.034) ng/mL Coagulation 11/21/24 Range/Units 00:27 PT 10.4 (10.0-12.5) sec APTT 18.5 L (22.0-30.0) sec CBC 11/20/24 Range/Units 23:16 WBC 16.2 H (3.8-10.6) k/uL RBC 3.44 L (4.30-5.90) m/uL Hgb 9.5 L (13.0-17.5) gm/dL Hct 31.3 L (39.0-53.0) % Plt Count 443 (150-450) k/uL Comprehensive Metabolic Panel 11/20/24 Range/Units 23:28 Sodium 133 L (137-145) mmol/L Potassium 4.3 (3.5-5.1) mmol/L Chloride 94 L (98-107) mmol/L Carbon Dioxide 31 H (22-30) mmol/L BUN 23 H (9-20) mg/dL Creatinine 0.80 (0.66-1.25) mg/dL Glucose 398 H (74-99) mg/dL Calcium 8.8 (8.4-10.2) mg/dL AST 26 (17-59) U/L ALT 34 (4-49) U/L Alkaline Phosphatase 84 (38-126) U/L Total Protein 5.6 L (6.3-8.2) g/dL Albumin 3.0 L (3.5-5.0) g/dL Current Medications Generic Name Dose Route Start Last Admin Trade Name Freq PRN Reason Stop Dose Admin Aspirin 81 mg 11/21/24 09:00 11/21/24 09:39 Aspirin 81 Mg PO 81 mg DAILY LAZARO Administration Atorvastatin Calcium 40 mg 11/21/24 09:00 11/21/24 09:40 Atorvastatin 40 Mg Tab PO 40 mg DAILY LAZARO Administration Dextrose/Water 25 ml 11/21/24 05:38 Dextrose 50% Syringe 50 Ml IVP PER PROTOCOL PRN Hypoglycemia Protocol Dextrose/Water 50 ml 11/21/24 05:38 Dextrose 50% Syringe 50 Ml IVP PER PROTOCOL PRN Hypoglycemia Protocol Ceftriaxone Sodium 1 gm/ 50 mls @ 100 mls/hr 11/21/24 09:00 11/21/24 09:43 Sodium Chloride IVPB 100 mls/hr Q24HR LAZARO Administration Protocol Insulin Aspart 0 unit 11/21/24 07:30 11/21/24 09:39 Insulin Aspart (Novolog) 100 Unit/Ml Vial SQ 4 unit ACHS LAZARO Administration Protocol Naloxone HCl 0.2 mg 11/21/24 02:18 Naloxone 0.4 Mg/Ml 1 Ml Vial IV Q2M PRN Opioid Reversal Nitroglycerin 1 inch 11/21/24 08:00 11/21/24 09:19 Nitroglycerin Oint 1 Inch/Gm Packet TOPICAL Not Given Q8HR LAZARO Intake and Output 11/20/24 11/21/24 11/21/24 22:59 06:59 14:59 Other: Weight 79.379 kg 11/20/24 23:16 11/20/24 23:28
[2024-11-21 12:11] LABS: Anisocytosis Slight; Basophils % (A) 0 %; Eosinophils # (A) 0.2 k/uL (0-0.7); Eosinophils % (A) 1 %; HCT 28.9 % (39.0-53.0); Hypochromasia Marked; Lymphocytes # (A) 1.4 k/uL (1.0-4.8); Lymphocytes % (A) 9 %; MCH 27.9 pg (25.0-35.0); MCHC 31.1 g/dL (31.0-37.0); MCV 89.5 fL (80.0-100.0); Mean Platelet Volume 6.8; Monocytes # (A) 1.1 k/uL (0-1.0); Monocytes % (A) 7 %; Neutrophils # (A) 12.7 k/uL (1.3-7.7); Neutrophils % (A) 82 %; Platelet Count 415 k/uL (150-450); RBC 3.23 m/uL (4.30-5.90); RDW 16.4 % (11.5-15.5); WBC 15.4 k/uL (3.8-10.6)
[2024-11-21 12:21] LABS: ALT 30 U/L (4-49); AST 26 U/L (17-59); African American GFR (CKD) >90 (>60 ml/min/1.73 sqM); Albumin 2.9 g/dL (3.5-5.0); Alkaline Phosphatase 71 U/L (38-126); Blood Urea Nitrogen 21 mg/dL (9-20); Calcium 8.8 mg/dL (8.4-10.2); Chloride 94 mmol/L (98-107); Glucose 139 mg/dL (74-99); Non-African American GFR(CKD) 87 (>60 ml/min/1.73 sqM); Potassium 3.3 mmol/L (3.5-5.1); Sodium 135 mmol/L (137-145); Total Bilirubin 0.3 mg/dL (0.2-1.3); Total Protein 5.4 g/dL (6.3-8.2)
[2024-11-21 12:27] LABS: Anion Gap 9 mmol/L; Carbon Dioxide 32 mmol/L (22-30)
[2024-11-21] MEDS: POTASSIUM CHLORIDE ER 20 MEQ TAB.ER PO STA (13:47)
[2024-11-21 17:22] LABS: Glucose,Whole Blood 280 mg/dL (70-110)
[2024-11-21 19:19] LABS: Chol/HDL Ratio 2.99 Ratio; LDL Cholesterol,Calculated 73.2 mg/dL (0.0-131.0)
[2024-11-21 21:34] LABS: Glucose,Whole Blood 126 mg/dL (70-110)
[2024-11-21] MEDS: methocarbamoL 500 MG TAB PO SCH (22:40)
[2024-11-21] MEDS: EZETIMIBE 10 MG TAB PO SCH (22:40)
[2024-11-21] MEDS: ACETAMINOPHEN TAB 325 MG TAB PO PRN (22:50)
[2024-11-21] MEDS: FORMOTEROL FUMARATE 20 MCG/2 ML NEBU INHALATION SCH (23:48)
[2024-11-22 06:30] LABS: Anisocytosis Slight; Basophils % (A) 0 %; Eosinophils # (A) 0.3 k/uL (0-0.7); Eosinophils % (A) 3 %; HCT 28.4 % (39.0-53.0); HGB 8.9 gm/dL (13.0-17.5); Hypochromasia Marked; Lymphocytes # (A) 1.4 k/uL (1.0-4.8); Lymphocytes % (A) 12 %; MCH 27.9 pg (25.0-35.0); MCHC 31.2 g/dL (31.0-37.0); MCV 89.2 fL (80.0-100.0); Mean Platelet Volume 7.1; Monocytes # (A) 0.8 k/uL (0-1.0); Monocytes % (A) 6 %; Neutrophils # (A) 9.7 k/uL (1.3-7.7); Neutrophils % (A) 79 %; Platelet Count 379 k/uL (150-450); RBC 3.18 m/uL (4.30-5.90); RDW 16.7 % (11.5-15.5); WBC 12.3 k/uL (3.8-10.6)
[2024-11-22 07:09] LABS: ALT 28 U/L (4-49); AST 28 U/L (17-59); African American GFR (CKD) >90 (>60 ml/min/1.73 sqM); Albumin 2.6 g/dL (3.5-5.0); Alkaline Phosphatase 82 U/L (38-126); Anion Gap 2 mmol/L; Blood Urea Nitrogen 16 mg/dL (9-20); Calcium 8.5 mg/dL (8.4-10.2); Carbon Dioxide 37 mmol/L (22-30); Chloride 97 mmol/L (98-107); Glucose 127 mg/dL (74-99); Magnesium 1.6 mg/dL (1.6-2.3); Non-African American GFR(CKD) >90 (>60 ml/min/1.73 sqM); Potassium 3.7 mmol/L (3.5-5.1); Sodium 136 mmol/L (137-145); Total Bilirubin 0.8 mg/dL (0.2-1.3); Total Protein 4.9 g/dL (6.3-8.2)
[2024-11-22 07:54] LABS: Glucose,Whole Blood 146 mg/dL (70-110)
[2024-11-22] MEDS: METOPROLOL SUCCINATE (ER) 25 MG TAB.ER.24H PO SCH (08:16)
[2024-11-22] MEDS: SENNOSIDES-DOCUSATE SODIUM 1 EACH TAB PO SCH (08:16)
[2024-11-22] MEDS: INSULIN DETEMIR (LEVEMIR) 100 UNIT/ML SYR SQ SCH (08:19)
[2024-11-22] MEDS: FLUCONAZOLE IN NACL,ISO-OSM 200 MG in SALINE 1 100ML.BAG IVPB SCH (09:12)
--- NOTE | 2024-11-22 09:46 | CA ---
Transthoracic Echo Report Name: Gino Spicer Age: 84 Gender: M : 1940 Exam Date: 11/21/2024 16:11 Exam Location: [facility] Ht (in): 74 Wt (lb): 175 Ordering Physician: Hazel Merlos Attending/Referring Phys: [id number], Gaurang [employer] Isabela Sellers RDCS Procedure CPT: Indications: LV function, non-STEMI Cardiac Hx: Technical Quality: Technically difficult study Contrast 1: Definity Total Dose (mL): 2 Contrast 2: Total Dose (mL): MEASUREMENTS (Male / Female) Normal Values 2D ECHO LV Diastolic Diameter PLAX 4.3 cm 4.2 - 5.9 / 3.9 - 5.3 cm LV Systolic Diameter PLAX 3.1 cm IVS Diastolic Thickness 1.5 cm 0.6 - 1.0 / 0.6 - 0.9 cm LVPW Diastolic Thickness 1.5 cm 0.6 - 1.0 / 0.6 - 0.9 cm LV Relative Wall Thickness 0.7 RV Internal Dim ED PLAX 3.1 cm LA Systolic Diameter LX 3.7 cm 3.0 - 4.0 / 2.7 - 3.8 cm LV Diastolic Volume MOD BP 74.9 cm??? 67 - 155 / 56 - 104 cm??? LV Systolic Volume MOD BP 28.5 cm??? 22 - 58 / 19 - 49 cm??? LV Ejection Fraction MOD BP 62.0 % >= 55 % LV Cardiac Index MOD BP 2122.1 cm???/min???m??? LV Diastolic Volume MOD 4C 76.9 cm??? LV Systolic Volume MOD 4C 24.8 cm??? LV Ejection Fraction MOD 4C 67.8 % LV Cardiac Index MOD 4C 2384.3 cm???/min???m??? LV Diastolic Length 4C 6.4 cm LV Systolic Length 4C 5.4 cm LV Diastolic Volume MOD 2C 70.6 cm??? LV Systolic Volume MOD 2C 31.3 cm??? LV Ejection Fraction MOD 2C 55.7 % LV Cardiac Index MOD 2C 1801.5 cm???/min???m??? LV Diastolic Length 2C 6.6 cm LV Systolic Length 2C 5.7 cm LA Volume 63.3 cm??? 18 - 58 / 22 - 52 cm??? LA Volume Index 31.2 cm???/m??? 16 - 28 cm???/m??? M-MODE Aortic Root Diameter MM 3.1 cm AV Cusp Separation MM 1.9 cm DOPPLER AV Peak Velocity 178.5 cm/s AV Peak Gradient 12.7 mmHg MV Area PHT 2.9 cm??? Mitral E Point Velocity 91.8 cm/s Mitral A Point Velocity 115.8 cm/s Mitral E to A Ratio 0.8 MV Deceleration Time 257.3 ms TR Peak Velocity 267.5 cm/s TR Peak Gradient 28.6 mmHg Right Ventricular Systolic Press 33.4 mmHg FINDINGS Left Ventricle Left ventricular ejection fraction is estimated at 50-55 %. Left ventricular cavity size normal. Moderate concentric left ventricular hypertrophy. Infero basel, mid basel hypokinesis. Right Ventricle Normal right ventricular size. Right ventricular systolic pressure within normal limits. Right Atrium Right atrium not well visualized. No right atrial thrombus or mass seen. Left Atrium Normal left atrial size. Mildly increased left atrial volume. Mitral Valve Structurally normal mitral valve. Mild mitral regurgitation. Mild prolapse of the anterior mitral valve leaflet. Aortic Valve Trileaflet aortic valve. No aortic valve stenosis or regurgitation. Tricuspid Valve Structurally normal tricuspid valve. Mild tricuspid regurgitation. Pulmonic Valve Structurally normal pulmonic valve. Trace pulmonic regurgitation. Pericardium No pericardial effusion. Aorta Normal size aortic root and proximal ascending aorta. CONCLUSIONS Normal biventricular systolic function Mild mitral valve prolapse with mild MR 30 artery systolic pressure No pericardial effusion Previewed by: Dr. Chapo Hull MD (Electronically Signed) Final Date: 22 November 2024 09:46
--- NOTE | 2024-11-22 11:13 | P.PN ---
Subjective Progress Note Date: 11/22/24 This is a pleasant 84-year-old male patient followed in the past with Dr. Phoenix but most recently has been following with Dr. Ortiz with past medical history of AAA status post endovascular repair, hypertension, prior tobacco abuse quit 30 years ago, hyperlipidemia, CAD, diabetes type 2, COPD. Over the past 2 months has been hospitalized for pleural effusion and required thoracentesis done at [facility]. Also history of recent severe GI bleed with severe anemia requiring transfusion. According to the patient he also underwent placement of a filter by Dr. Francis done recently at [facility]. he has been at [facility] for rehab. Presented to the emergency department with complaints of shortness of breath and sudden onset chest discomfort after getting up off the toilet. At the time my examination patient is resting comfortably in the ER. Denies any current complaints of chest discomfort. Diagnostics -EKG: Sinus tachycardia with right bundle branch block -Chest x-ray: Sinus with pneumonitis and large left pleural effusion -Laboratory studies: Blood cell count 16.2, hemoglobin 9.5, sodium 133, BUN 23, creatinine 0.8, NT proBNP 1620. Troponin 0.038, 1.29 and third pending -Home cardiac medications: Metoprolol succinate 25 mg p.o. daily, Lasix 40 mg p.o. daily, ezetimibe 10 mg p.o. nightly and aspirin 81 mg p.o. daily -Prior stress test: November 2022 inferior ischemia -Echocardiogram: January 2023 EF 50% -Cardiac catheterization: November 2022 30 to 40% LAD stenosis, 20% left main stenosis and 100% distal RCA stenosis with [id number] collaterals 11/22/2024 Patient was seen and examined sitting up in bed eating breakfast. He overall has no chest discomfort or shortness of breath. He complains of diffuse joint and muscle aches related to the stretcher he is sleeping on. Echocardiogram with Doppler study showed EF of 50-55% with inferobasal and mid basal hypokinesis, mild MVP and mild MR. Records from [facility] reviewed. It appears patient was admitted there for evaluation of pleural effusion felt to be chronic and loculated and no intervention was done. 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 He was anticoagulated on warfarin upon discharge from [facility] and was readmitted to [facility] with a hemoglobin 5.6, requiring transfusion. Following that anticoagulation was discontinued and he had a filter placed by Dr. Francis. PHYSICAL EXAMINATION: This is a 84-year-old gentleman in no apparent distress at the time of my examination. VITAL SIGNS: Reviewed. HEENT: Head is atraumatic, normocephalic. Pupils are equal, round. Sclerae anicteric. Conjunctivae are clear. Mucous membranes of the mouth are moist. Neck is supple. There is no elevated jugular venous pressure. No carotid bruit is h eard. CHEST EXAMINATION: Clear to auscultation bilaterally. No wheezes rales or rhonchi. Respirations even and nonlabored. HEART EXAMINATION: Heart regular, positive S1 and S2. No S3. No S4. Soft systolic murmur. ABDOMEN: Soft, nontender. Bowel sounds are heard. No organomegaly noted. EXTREMITIES: 2+ peripheral pulses with evidence of trace peripheral edema and no calf tenderness noted. NEUROLOGIC EXAMINATION: Patient is awake, alert and oriented x3. Assessment: 1. NSTEMI 2. CAD with known total occluded RCA 3. Recent severe GI bleed requiring transfusions 4. Pleural effusion, chronic, loculated 5. Recent filter insertion Plan: From cardiology's perspective continue aspirin, atorvastatin, ezetimibe and metoprolol. Patient is currently chest pain-free. Hold off on heparinizing the patient at this time due to recent severe GI bleed. We will continue to follow the patient provide further recommendations accordingly. Thank you kindly for this consultation. Nurse practitioner note has been reviewed, I agree with documented findings and plan of care. Patient was seen and examined. Objective - Vital Signs Vital signs: Vital Signs Temp 98 F 11/22/24 08:13 Pulse 87 11/22/24 09:49 Resp 16 11/22/24 09:49 BP 130/77 11/22/24 08:13 Pulse Ox 97 11/22/24 09:43 FiO2 - Labs CBC & Chem 7: 11/22/24 06:14 11/22/24 06:14 Labs: Abnormal Lab Results - Last 24 Hours (Table) 11/21/24 11/21/24 11/21/24 Range/Units 11:53 11:53 11:53 WBC 15.4 H (3.8-10.6) k/uL RBC 3.23 L (4.30-5.90) m/uL Hgb 9.0 L (13.0-17.5) gm/dL Hct 28.9 L (39.0-53.0) % RDW 16.4 H (11.5-15.5) % Neutrophils # 12.7 H (1.3-7.7) k/uL Monocytes # 1.1 H (0-1.0) k/uL Sodium 135 L (137-145) mmol/L Potassium 3.3 L (3.5-5.1) mmol/L Chloride 94 L (98-107) mmol/L Carbon Dioxide 32 H (22-30) mmol/L BUN 21 H (9-20) mg/dL Creatinine (0.66-1.25) mg/dL Glucose 139 H (74-99) mg/dL POC Glucose (mg/dL) (70-110) mg/dL Hemoglobin A1c (<=6.0) % Troponin I 1.550 H* (0.000-0.034) ng/mL Total Protein 5.4 L (6.3-8.2) g/dL Albumin 2.9 L (3.5-5.0) g/dL 11/21/24 11/21/24 11/21/24 Range/Units 11:53 14:59 17:20 WBC (3.8-10.6) k/uL RBC (4.30-5.90) m/uL Hgb (13.0-17.5) gm/dL Hct (39.0-53.0) % RDW (11.5-15.5) % Neutrophils # (1.3-7.7) k/uL Monocytes # (0-1.0) k/uL Sodium (137-145) mmol/L Potassium (3.5-5.1) mmol/L Chloride (98-107) mmol/L Carbon Dioxide (22-30) mmol/L BUN (9-20) mg/dL Creatinine (0.66-1.25) mg/dL Glucose (74-99) mg/dL POC Glucose (mg/dL) 280 H (70-110) mg/dL Hemoglobin A1c 6.4 H (<=6.0) % Troponin I 1.150 H* (0.000-0.034) ng/mL Total Protein (6.3-8.2) g/dL Albumin (3.5-5.0) g/dL 11/21/24 11/22/24 11/22/24 Range/Units 21:32 06:14 06:14 WBC 12.3 H (3.8-10.6) k/uL RBC 3.18 L (4.30-5.90) m/uL Hgb 8.9 L (13.0-17.5) gm/dL Hct 28.4 L (39.0-53.0) % RDW 16.7 H (11.5-15.5) % Neutrophils # 9.7 H (1.3-7.7) k/uL Monocytes # (0-1.0) k/uL Sodium 136 L (137-145) mmol/L Potassium (3.5-5.1) mmol/L Chloride 97 L (98-107) mmol/L Carbon Dioxide 37 H (22-30) mmol/L BUN (9-20) mg/dL Creatinine 0.62 L (0.66-1.25) mg/dL Glucose 127 H (74-99) mg/dL POC Glucose (mg/dL) 126 H (70-110) mg/dL Hemoglobin A1c (<=6.0) % Troponin I (0.000-0.034) ng/mL Total Protein 4.9 L (6.3-8.2) g/dL Albumin 2.6 L (3.5-5.0) g/dL 11/22/24 Range/Units 07:51 WBC (3.8-10.6) k/uL RBC (4.30-5.90) m/uL Hgb (13.0-17.5) gm/dL Hct (39.0-53.0) % RDW (11.5-15.5) % Neutrophils # (1.3-7.7) k/uL Monocytes # (0-1.0) k/uL Sodium (137-145) mmol/L Potassium (3.5-5.1) mmol/L Chloride (98-107) mmol/L Carbon Dioxide (22-30) mmol/L BUN (9-20) mg/dL Creatinine (0.66-1.25) mg/dL Glucose (74-99) mg/dL POC Glucose (mg/dL) 146 H (70-110) mg/dL Hemoglobin A1c (<=6.0) % Troponin I (0.000-0.034) ng/mL Total Protein (6.3-8.2) g/dL Albumin (3.5-5.0) g/dL Microbiology - Last 24 Hours (Table) 11/21/24 00:45 Urine Culture - Final Urine,Clean Catch Glory glabrata
[2024-11-22 12:08] LABS: Glucose,Whole Blood 152 mg/dL (70-110)
[2024-11-22] MEDS ORDERED: IPRATROPIUM-ALBUTEROL 3 ML NEB INHALATION PRN (12:14)
--- NOTE | 2024-11-22 12:19 | P.PN ---
Subjective Progress Note Date: 11/22/24 Hospital Course: 84-year-old male with History of AAA status post endovascular repair, hyperten luke, previous tobacco abuse and quit 30 years ago, hyperlipidemia, mild alcohol use, coronary artery disease including 30 to 40% LAD stenosis, 20% left main stenosis and 100% distal RCA stenosis with [id number] collaterals, type II diabetes mellitus, cirrhosis and COPD normally on 2 L continuous presented to the emergency department for chest pain and shortness of breath. Also been complaining of significant dysuria. Vitals on admission temperature 98, pulse rate 91, respiratory rate 22, blood pressure 117/66, O2 sat 97% on nasal cannula at 5 L/min EKG independently interpreted as sinus tachycardia with occasional supraventricular premature complexes with a ventricular rate of 120 bpm, possible right ventricular hypertrophy, QTc interval of 398 ms, with ST-segment depression noted in leads V2-V4. CXR shows bronchitis with pneumonitis and large left pleural effusion. Labs on admission show WBC 16.2, hemoglobin 9.5, hematocrit 31.3, platelets 443, neutrophils 14.8, PT 10.4, PTT 18.5, INR 0.9, sodium 133, potassium 4.3, chloride 94, carbon dioxide 31, BUN 23, creatinine 0.8, glucose 398, magnesium 1.4, troponin 0.038, BNP 1620 UA shows cloudy urine, negative for urine nitrites, large leukocyte esterase, few bacteria Troponin peaked at 1.550. Patient was not heparinized. Likely type II NSTEMI. Urine cultures growing Glory glabrata. IV ceftriaxone discontinued, started o n IV fluconazole. Subjective: Patient seen and examined at bedside. Denies any chest pain. Continues to have dysuria. Pertinent positives and negatives as discussed above, a complete review of systems was performed and all other systems are negative. Vitals Signs Reviewed. General: Nontoxic, no distress, appears at stated age, chronically ill-appearing Derm: Warm, dry, multiple upper extremity bilateral ecchymosis, sacral decubitus ulcer not examined Head: Atraumatic, normocephalic, symmetric Eyes: EOMI, no lid lag, anicteric sclera Mouth: No lip lesion, mucus membranes moist Cardiovascular: S1S2 reg, no murmur Lungs: CTA bilateral, no rhonchi, no rales, no accessory muscle use, s upplemental oxygen Abdominal: Soft, nontender to palpation, no guarding, no appreciable organomegaly Ext: No gross muscle atrophy, no edema, no contractures Neuro: CN II-XI grossly intact, no focal neuro deficits Psych: Alert, oriented, appropriate affect Data Reviewed Today: Pertinent Labs: WBC 12.3, hemoglobin 8.9, sodium 136, bicarb 37, creatinine 0.62 Imaging: Echocardiogram shows LVEF 50 to 55%, mild mitral valve prolapse Assessment and Plan: Active: Acute on chronic hypoxic respiratory failure Left pleural effusion Interstitial opacities, possible community-acquired pneumonia History of COPD on 2 L, not in exacerbation Former smoker Type II NSTEMI History of CAD -Cardiology note reviewed, hold off heparinizing patient, troponin downtrending, continue aspirin 81 mg, atorvastatin 40 mg, Zetia 10 mg, metoprolol 25 daily -Consider further diuretics depending on the following -Repeat chest x-ray, chest ultrasound for large left pleural effusion -Continue ceftriaxone 2 g IV every 24 hours, azithromycin IV 500 mg daily -Blood cultures not obtained on admission, will get sputum cultures, procalcitonin, Legionella urine antigen -Pulmonology consulted -On DuoNebs 4 times daily scheduled, every 2 hours as needed, continue home Perforomist twice daily Sepsis secondary to urinary tract infection Candiduria -Patient started on IV fluconazole 200 mg daily Type 2 diabetes -Continue Levemir 14 units daily, aspart 4 units ACHS, sliding scale insulin, monitor for hypoglycemia Hyponatremia, resolving Hypomagnesemia, resolved Left buttock decubitus ulcer, present on admission -Wound care following Chronic: History of cirrhosis Hypertension DVT ppx: Lovenox Code status: Full code Anticipated discharge place: Pending clinical course Anticipated discharge time: Pending clinical course Objective - Vital Signs Vital signs: Vital Signs Temp 98 F 11/22/24 08:13 Pulse 87 11/22/24 09:49 Resp 16 11/22/24 09:49 BP 130/77 11/22/24 08:13 Pulse Ox 97 11/22/24 09:43 FiO2 - Labs CBC & Chem 7: 11/22/24 06:14 11/22/24 06:14 Labs: Abnormal Lab Results - Last 24 Hours (Table) 11/21/24 11/21/24 11/21/24 Range/Units 11:53 11:53 11:53 WBC (3.8-10.6) k/uL RBC (4.30-5.90) m/uL Hgb (13.0-17.5) gm/dL Hct (39.0-53.0) % RDW (11.5-15.5) % Neutrophils # (1.3-7.7) k/uL Sodium 135 L (137-145) mmol/L Potassium 3.3 L (3.5-5.1) mmol/L Chloride 94 L (98-107) mmol/L Carbon Dioxide 32 H (22-30) mmol/L BUN 21 H (9-20) mg/dL Creatinine (0.66-1.25) mg/dL Glucose 139 H (74-99) mg/dL POC Glucose (mg/dL) (70-110) mg/dL Hemoglobin A1c 6.4 H (<=6.0) % Troponin I 1.550 H* (0.000-0.034) ng/mL Total Protein 5.4 L (6.3-8.2) g/dL Albumin 2.9 L (3.5-5.0) g/dL 11/21/24 11/21/24 11/21/24 Range/Units 14:59 17:20 21:32 WBC (3.8-10.6) k/uL RBC (4.30-5.90) m/uL Hgb (13.0-17.5) gm/dL Hct (39.0-53.0) % RDW (11.5-15.5) % Neutrophils # (1.3-7.7) k/uL Sodium (137-145) mmol/L Potassium (3.5-5.1) mmol/L Chloride (98-107) mmol/L Carbon Dioxide (22-30) mmol/L BUN (9-20) mg/dL Creatinine (0.66-1.25) mg/dL Glucose (74-99) mg/dL POC Glucose (mg/dL) 280 H 126 H (70-110) mg/dL Hemoglobin A1c (<=6.0) % Troponin I 1.150 H* (0.000-0.034) ng/mL Total Protein (6.3-8.2) g/dL Albumin (3.5-5.0) g/dL 11/22/24 11/22/24 11/22/24 Range/Units 06:14 06:14 07:51 WBC 12.3 H (3.8-10.6) k/uL RBC 3.18 L (4.30-5.90) m/uL Hgb 8.9 L (13.0-17.5) gm/dL Hct 28.4 L (39.0-53.0) % RDW 16.7 H (11.5-15.5) % Neutrophils # 9.7 H (1.3-7.7) k/uL Sodium 136 L (137-145) mmol/L Potassium (3.5-5.1) mmol/L Chloride 97 L (98-107) mmol/L Carbon Dioxide 37 H (22-30) mmol/L BUN (9-20) mg/dL Creatinine 0.62 L (0.66-1.25) mg/dL Glucose 127 H (74-99) mg/dL POC Glucose (mg/dL) 146 H (70-110) mg/dL Hemoglobin A1c (<=6.0) % Troponin I (0.000-0.034) ng/mL Total Protein 4.9 L (6.3-8.2) g/dL Albumin 2.6 L (3.5-5.0) g/dL 11/22/24 Range/Units 12:07 WBC (3.8-10.6) k/uL RBC (4.30-5.90) m/uL Hgb (13.0-17.5) gm/dL Hct (39.0-53.0) % RDW (11.5-15.5) % Neutrophils # (1.3-7.7) k/uL Sodium (137-145) mmol/L Potassium (3.5-5.1) mmol/L Chloride (98-107) mmol/L Carbon Dioxide (22-30) mmol/L BUN (9-20) mg/dL Creatinine (0.66-1.25) mg/dL Glucose (74-99) mg/dL POC Glucose (mg/dL) 152 H (70-110) mg/dL Hemoglobin A1c (<=6.0) % Troponin I (0.000-0.034) ng/mL Total Protein (6.3-8.2) g/dL Albumin (3.5-5.0) g/dL Microbiology - Last 24 Hours (Table) 11/21/24 00:45 Urine Culture - Final Urine,Clean Catch Glory glabrata
[2024-11-22 12:35] LABS: Anisocytosis Slight; HCT 28.5 % (39.0-53.0); HGB 8.6 gm/dL (13.0-17.5); Hypochromasia Marked; MCH 27.1 pg (25.0-35.0); MCHC 30.3 g/dL (31.0-37.0); MCV 89.6 fL (80.0-100.0); Mean Platelet Volume 6.4; Platelet Count 364 k/uL (150-450); RBC 3.18 m/uL (4.30-5.90); RDW 16.7 % (11.5-15.5); WBC 12.6 k/uL (3.8-10.6)
--- NOTE | 2024-11-22 12:56 | XR ---
EXAMINATION TYPE: XR chest 1V portable DATE OF EXAM: 11/22/2024 12:42 PM COMPARISON: Chest radiographs from 01/21/2024 TECHNIQUE: XR chest 1V portable Portable AP radiograph of the chest. CLINICAL INDICATION:Male, 84 years old with history of hypoxia; FINDINGS: Lungs/Pleura: No pneumothorax. Moderate size left pleural effusion redemonstrated with adjacent patch y airspace opacities. Right perihilar patchy airspace opacities. . Heart/mediastinum: Cardiomediastinal silhouette is partially obscured due to overlying and adjacent o pacities. Atherosclerotic calcifications are seen in the aorta. Musculoskeletal: No acute osseous pathology. IMPRESSION: Similar moderate left pleural effusion with adjacent patchy airspace opacities. Additional right joanne hilar airspace opacities. Findings concerning for pneumonia versus underlying pulmonary edema. [facility], , 11/22/2024 12:54 PM
[2024-11-22] MEDS: AZITHROMYCIN 500 MG in SODIUM CHLORIDE 0.9% 250 ML IVPB SCH (13:26)
--- NOTE | 2024-11-22 13:59 | US ---
EXAMINATION TYPE: US chest DATE OF EXAM: 11/22/2024 COMPARISON: NONE CLINICAL INDICATION: Male, 84 years old with history of assess left pleural effusion, possible thora; left effusion TECHNIQUE: Grayscale imaging of the chest. Targeted ultrasound of the posterior lower left hemithora x FINDINGS: EXAM MEASUREMENTS: Left Pleural Effusion pocket size: 5 cm Left skin surface to fluid distance: 2.7 cm Left side marked for possible thoracentesis outside the dept. Pulmonologists are able to review the images in the patient?s EMR. IMPRESSIONS: Moderate size left pleural effusion [facility], , 11/22/2024 1:56 PM
[2024-11-22] MEDS: IPRATROPIUM-ALBUTEROL 3 ML NEB INHALATION SCH (15:11)
[2024-11-22 16:52] LABS: Glucose,Whole Blood 159 mg/dL (70-110)
[2024-11-22] MEDS: FUROSEMIDE 10 MG/ML 4 ML VIAL IV SCH (17:11)
--- NOTE | 2024-11-22 17:12 | P.CNPUL ---
History of Present Illness Consult date: 11/22/24 Requesting physician: Osvaldo Schreiber Reason for consult: pleural effusion, abnormal CXR/CT Chief complaint: Chest pain History of present illness: This is an 84-year-old male patient with a known history of diabetes mellitus, hypertension, hyperlipidemia, cirrhosis, former smoker, recent severe GI bleeding requiring multiple transfusions, recent IVC filter placed, most of his care has been at [facility] and at [facility]. He has been in inpatient rehabilitation at [facility]. He presented here to the emergency room on 11/20/2024 with complaints of chest pain. Troponin 0.038, 1.150, 0.550. X-ray revealed a large the same. He is seen in the emergency department. Currently sitting up on the stretcher. Awake and alert in no acute distress. Maintaining O2 saturations in the 90s on 3 L/min per nasal cannula. He does have home oxygen as well. ReSound of the chest revealed a 5 cm pleural effusion. White count 12.6. Hemoglobin 8.6. Platelets 364. Sodium 136. Potassium 3.7. Bicarb 37. BUN 16. Creatinine 0.62. Glucose 127. Urinalysis with high WBCs and few bacteria. Review of Systems REVIEW OF SYSTEMS: CONSTITUTIONAL: Denies any recent significant weight loss or weight gain. EYES: Denies change in vision. EARS, NOSE, MOUTH, THROAT: Denies headaches, denies sore throat. CARDIOVASCULAR: Positive for chest pain, no palpitations or syncopal episodes. RESPIRATORY: Denies shortness of breath, cough, congestion or hemoptysis. GASTROINTESTINAL: Denies change in appetite, denies abdominal pain GENITOURINARY: Denies hematuria, denies infections. MUSKULOSKELETAL: Denies pain, denies swelling. INTEGUMENTARY: Denies rash, denies eczema. NEUROLOGICAL: Denies recent memory loss, no recent seizure activity. PSYCHIATRIC: Denies anxiety, denies depression. HEMATOLOGIC/LYMPHATIC: Denies anemia, denies enlarged lymph nodes. Past Medical History Past Medical History: COPD, Diabetes Mellitus, Hyperlipidemia, Hypertension Additional Past Medical History / Comment(s): type 2 DM, anemia, cirrhosis, plural effusion, History of Any Multi-Drug Resistant Organisms: VRE Past Surgical History: Hernia Repair Additional Past Surgical History / Comment(s): AAA Smoking Status: Former smoker Past Alcohol Use History: None Reported Past Drug Use History: None Reported Medications and Allergies Home Medications Medication Instructions Recorded Confirmed Type Acetaminophen Tab [Tylenol Tab] 1,000 mg PO Q6H PRN 12/18/22 11/21/24 History Multivitamins, Thera [Multivitamin 1 tab PO DAILY 12/18/22 11/21/24 History (formulary)] Amoxic-Pot Clav 875-125Mg 1 tab PO BID 11/21/24 11/21/24 History [Augmentin 875-125] Ascorbic Acid [Vitamin C] 500 mg PO DAILY 11/21/24 11/21/24 History Aspirin 81 mg PO DAILY 11/21/24 11/21/24 History Benzonatate [Tessalon Perles] 100 mg PO TID PRN 11/21/24 11/21/24 History Ezetimibe [Zetia] 10 mg PO HS 11/21/24 11/21/24 History Ferrous Sulfate [Feosol] 325 mg PO DAILY 11/21/24 11/21/24 History Furosemide [Lasix] 40 mg PO DAILY 11/21/24 11/21/24 History INSULIN LISPRO (HumaLOG) [humaLOG] 4 units SQ ACHS 11/21/24 11/21/24 History INSULIN LISPRO (HumaLOG) [humaLOG] See Protocol SQ ACHS 11/21/24 11/21/24 History Insulin Glargine [Lantus Vial] 14 unit SQ DAILY@0600 11/21/24 11/21/24 History Ipratropium-Albuterol Nebulize 3 ml INHALATION RT-Q6H 11/21/24 11/21/24 History [Duoneb 0.5 mg-3 mg/3 ml Soln] Lidocaine 5% Patch [Lidoderm] 1 patch TOPICAL DAILY 11/21/24 11/21/24 History Metoprolol Succinate (ER) [Toprol 25 mg PO DAILY 11/21/24 11/21/24 History Xl] Omeprazole [PriLOSEC] 20 mg PO DAILY 11/21/24 11/21/24 History Salmeterol 50 mcg [Serevent Diskus] 1 puff INHALATION RT-Q12H 11/21/24 11/21/24 History Sennosides/Docusate Sodium [Senna 2 tab PO DAILY 11/21/24 11/21/24 History Plus 8.6-50 mg Tablet] Simethicone Chew [Mylicon Chew] 80 mg PO QID PRN 11/21/24 11/21/24 History Sodium Chloride [Saline Mist] 1 spray EA NOSTRIL Q2H PRN 11/21/24 11/21/24 History Triamcinolone 0.1% Cream [Kenalog 1 applic TOPICAL BID 11/21/24 11/21/24 History 0.1% Cream] Z-Guard 1 applic TOPICAL HS 11/21/24 11/21/24 History guaiFENesin [guaiFENesin Oral 200 mg PO QID PRN 11/21/24 11/21/24 History Solution] methocarbamoL [Robaxin] 500 mg PO TID 11/21/24 11/21/24 History polyethylene glycoL 3350 [Miralax] 17 gm PO DAILY 11/21/24 11/21/24 History predniSONE See Taper PO DAILY 11/21/24 11/21/24 History Allergies Allergy/AdvReac Type Severity Reaction Status Date / Time No Known Allergies Allergy Verified 11/21/24 09:53 Physical Exam Vitals: Vital Signs Temp Pulse Resp BP Pulse Ox 11/22/24 17:00 98 F 78 20 117/57 96 11/22/24 15:19 85 16 11/22/24 15:11 88 16 11/22/24 12:00 60 18 130/75 98 11/22/24 09:49 87 16 11/22/24 09:43 85 16 97 11/22/24 08:13 98 F 96 20 130/77 96 11/22/24 07:00 103 H 18 115/83 96 11/22/24 05:08 70 19 94 L 11/22/24 05:00 95 141/61 96 11/22/24 00:00 98.1 F 101 H 17 110/58 96 GENERAL EXAM: Alert, pleasant 84-year-old male, on 2 L nasal cannula, fairly comfortable in no apparent distress. HEAD: Normocephalic. EYES: Normal reaction of pupils, equal size. NOSE: Clear with pink turbinates. THROAT: No erythema or exudates. NECK: No masses, no JVD. CHEST: No chest wall deformity. LUNGS: Equal air entry with Minich breath sounds in the left base. CVS: S1 and S2 normal with no audible murmur, regular rhythm. ABDOMEN: No hepatosplenomegaly, normal bowel sounds, no guarding or rigidity. SPINE: No scoliosis or deformity SKIN: No rashes CENTRAL NERVOUS SYSTEM: No focal deficits, tone is normal in all 4 extremities. EXTREMITIES: There is no peripheral edema. No clubbing, no cyanosis. Peripheral pulses are intact. Results - Laboratory Findings CBC and BMP: 11/22/24 12:19 11/22/24 06:14 PT/INR, D-dimer PT 10.4 sec (10.0-12.5) 11/21/24 00:27 INR 0.9 (<1.2) 11/21/24 00:27 Abnormal lab findings: Abnormal Labs 11/20/24 11/20/24 11/20/24 23:14 23:16 23:28 WBC 16.2 H RBC 3.44 L Hgb 9.5 L Hct 31.3 L MCHC 30.5 L RDW 16.4 H Neutrophils # 14.8 H Lymphocytes # 0.4 L Monocytes # APTT Sodium 133 L Potassium Chloride 94 L Carbon Dioxide 31 H BUN 23 H Creatinine Glucose 398 H POC Glucose (mg/dL) 421 H Hemoglobin A1c Magnesium 1.4 L Troponin I Total Protein 5.6 L Albumin 3.0 L Urine Protein Urine Glucose (UA) Urine Ketones Ur Leukocyte Esterase Urine RBC Urine WBC Calcium Oxalate Crystal Urine Bacteria Hyaline Casts Urine Mucus Urine Yeast (Budding) 11/20/24 11/21/24 11/21/24 23:28 00:27 00:45 WBC RBC Hgb Hct MCHC RDW Neutrophils # Lymphocytes # Monocytes # APTT 18.5 L Sodium Potassium Chloride Carbon Dioxide BUN Creatinine Glucose POC Glucose (mg/dL) Hemoglobin A1c Magnesium Troponin I 0.038 H* Total Protein Albumin Urine Protein 1+ H Urine Glucose (UA) 4+ H Urine Ketones Trace H Ur Leukocyte Esterase Large H Urine RBC 68 H Urine WBC >182 H Calcium Oxalate Crystal Many H Urine Bacteria Few H Hyaline Casts 26 H Urine Mucus Few H Urine Yeast (Budding) Many H 11/21/24 11/21/24 11/21/24 03:35 06:33 09:18 WBC RBC Hgb Hct MCHC RDW Neutrophils # Lymphocytes # Monocytes # APTT Sodium Potassium Chloride Carbon Dioxide BUN Creatinine Glucose POC Glucose (mg/dL) 207 H 202 H Hemoglobin A1c Magnesium Troponin I 1.290 H* Total Protein Albumin Urine Protein Urine Glucose (UA) Urine Ketones Ur Leukocyte Esterase Urine RBC Urine WBC Calcium Oxalate Crystal Urine Bacteria Hyaline Casts Urine Mucus Urine Yeast (Budding) 11/21/24 11/21/24 11/21/24 11:53 11:53 11:53 WBC 15.4 H RBC 3.23 L Hgb 9.0 L Hct 28.9 L MCHC RDW 16.4 H Neutrophils # 12.7 H Lymphocytes # Monocytes # 1.1 H APTT Sodium 135 L Potassium 3.3 L Chloride 94 L Carbon Dioxide 32 H BUN 21 H Creatinine Glucose 139 H POC Glucose (mg/dL) Hemoglobin A1c Magnesium Troponin I 1.550 H* Total Protein 5.4 L Albumin 2.9 L Urine Protein Urine Glucose (UA) Urine Ketones Ur Leukocyte Esterase Urine RBC Urine WBC Calcium Oxalate Crystal Urine Bacteria Hyaline Casts Urine Mucus Urine Yeast (Budding) 11/21/24 11/21/24 11/21/24 11:53 14:59 17:20 WBC RBC Hgb Hct MCHC RDW Neutrophils # Lymphocytes # Monocytes # APTT Sodium Potassium Chloride Carbon Dioxide BUN Creatinine Glucose POC Glucose (mg/dL) 280 H Hemoglobin A1c 6.4 H Magnesium Troponin I 1.150 H* Total Protein Albumin Urine Protein Urine Glucose (UA) Urine Ketones Ur Leukocyte Esterase Urine RBC Urine WBC Calcium Oxalate Crystal Urine Bacteria Hyaline Casts Urine Mucus Urine Yeast (Budding) 11/21/24 11/22/24 11/22/24 21:32 06:14 06:14 WBC 12.3 H RBC 3.18 L Hgb 8.9 L Hct 28.4 L MCHC RDW 16.7 H Neutrophils # 9.7 H Lymphocytes # Monocytes # APTT Sodium 136 L Potassium Chloride 97 L Carbon Dioxide 37 H BUN Creatinine 0.62 L Glucose 127 H POC Glucose (mg/dL) 126 H Hemoglobin A1c Magnesium Troponin I Total Protein 4.9 L Albumin 2.6 L Urine Protein Urine Glucose (UA) Urine Ketones Ur Leukocyte Esterase Urine RBC Urine WBC Calcium Oxalate Crystal Urine Bacteria Hyaline Casts Urine Mucus Urine Yeast (Budding) 11/22/24 11/22/24 11/22/24 07:51 12:07 12:19 WBC 12.6 H RBC 3.18 L Hgb 8.6 L Hct 28.5 L MCHC 30.3 L RDW 16.7 H Neutrophils # Lymphocytes # Monocytes # APTT Sodium Potassium Chloride Carbon Dioxide BUN Creatinine Glucose POC Glucose (mg/dL) 146 H 152 H Hemoglobin A1c Magnesium Troponin I Total Protein Albumin Urine Protein Urine Glucose (UA) Urine Ketones Ur Leukocyte Esterase Urine RBC Urine WBC Calcium Oxalate Crystal Urine Bacteria Hyaline Casts Urine Mucus Urine Yeast (Budding) 11/22/24 16:50 WBC RBC Hgb Hct MCHC RDW Neutrophils # Lymphocytes # Monocytes # APTT Sodium Potassium Chloride Carbon Dioxide BUN Creatinine Glucose POC Glucose (mg/dL) 159 H Hemoglobin A1c Magnesium Troponin I Total Protein Albumin Urine Protein Urine Glucose (UA) Urine Ketones Ur Leukocyte Esterase Urine RBC Urine WBC Calcium Oxalate Crystal Urine Bacteria Hyaline Casts Urine Mucus Urine Yeast (Budding) - Diagnostic Findings Chest x-ray: image reviewed Assessment and Plan Assessment: Acute non-ST segment elevation myocardial infarction Moderate left pleural effusion, possibly chronic in nature, measuring only 5 cm on ultrasound History of coronary disease with a totally occluded RCA Recent severe GI bleed requiring multiple blood transfusions mainly at [facility] Recent IVC filter placed at [facility] Chronic obstructive pulmonary disease on home oxygen History of abdominal aortic aneurysm status post endovascular repair Hypertension Former smoker Hyperlipidemia Diabetes mellitus Poor overall functional performance based on the above-mentioned multiple comorbidities Was in rehab at [facility] Plan: The patient was seen and evaluated Imaging, labs and medications reviewed Left pleural effusion possible chronic and loculated No plans for thoracentesis at this time Continue Lasix 40 mg IV every 12 hours Continue antibiotics for now Check a procalcitonin Continue bronchodilators Titrate the FiO2 as tolerated We will continue to follow and make further recommendations based on his cl inical status I have personally seen and examined the patient, performed the documentation and the assessment and plan as written. Number of minutes spent on the visit: 20. Dictation was produced using Rk[employer] dictation software. Please excuse any grammatical, word or spelling errors. This patient was seen in coordination with the pulmonary/critical care physician, Dr. Alston. He did spend greater than 50% of the time evaluating, examining and developing the plan of care. He agrees to the above HPI, physical exam, assessment and plan of care as dictated by the nurse practitioner.
[2024-11-22 20:32] LABS: Glucose,Whole Blood 193 mg/dL (70-110)
[2024-11-23 06:00] LABS: Glucose,Whole Blood 163 mg/dL (70-110)
[2024-11-23 07:57] LABS: African American GFR (CKD) >90 (>60 ml/min/1.73 sqM); Anion Gap 5 mmol/L; Blood Urea Nitrogen 14 mg/dL (9-20); Calcium 8.7 mg/dL (8.4-10.2); Carbon Dioxide 36 mmol/L (22-30); Chloride 91 mmol/L (98-107); Glucose 158 mg/dL (74-99); Non-African American GFR(CKD) 86 (>60 ml/min/1.73 sqM); Potassium 3.7 mmol/L (3.5-5.1); Sodium 132 mmol/L (137-145)
[2024-11-23 08:28] LABS: Anisocytosis Slight; HCT 29.1 % (39.0-53.0); HGB 8.8 gm/dL (13.0-17.5); Hypochromasia Marked; MCHC 30.4 g/dL (31.0-37.0); MCV 88.8 fL (80.0-100.0); Mean Platelet Volume 6.6; Platelet Count 368 k/uL (150-450); RBC 3.28 m/uL (4.30-5.90); RDW 16.7 % (11.5-15.5); WBC 13.3 k/uL (3.8-10.6)
[2024-11-23 11:29] LABS: Glucose,Whole Blood 327 mg/dL (70-110)
--- NOTE | 2024-11-23 11:56 | P.PN ---
Subjective Progress Note Date: 11/23/24 Hospital Course: 84-year-old male with History of AAA status post endovascular repair, hyperten luke, previous tobacco abuse and quit 30 years ago, hyperlipidemia, mild alcohol use, coronary artery disease including 30 to 40% LAD stenosis, 20% left main stenosis and 100% distal RCA stenosis with [id number] collaterals, type II diabetes mellitus, cirrhosis and COPD normally on 2 L continuous presented to the emergency department for chest pain and shortness of breath. Also been complaining of significant dysuria. Vitals on admission temperature 98, pulse rate 91, respiratory rate 22, blood pressure 117/66, O2 sat 97% on nasal cannula at 5 L/min EKG independently interpreted as sinus tachycardia with occasional supraventricular premature complexes with a ventricular rate of 120 bpm, possible right ventricular hypertrophy, QTc interval of 398 ms, with ST-segment depression noted in leads V2-V4. CXR shows bronchitis with pneumonitis and large left pleural effusion. Labs on admission show WBC 16.2, hemoglobin 9.5, hematocrit 31.3, platelets 443, neutrophils 14.8, PT 10.4, PTT 18.5, INR 0.9, sodium 133, potassium 4.3, chloride 94, carbon dioxide 31, BUN 23, creatinine 0.8, glucose 398, magnesium 1.4, troponin 0.038, BNP 1620 UA shows cloudy urine, negative for urine nitrites, large leukocyte esterase, few bacteria Troponin peaked at 1.550. Patient was not heparinized. Likely type II NSTEMI. Urine cultures growing Glory glabrata. Started on IV fluconazole. Also pamela rned about possible COVID-pneumonia, on IV antibiotics. Pulmonology consulted. Patient also started on IV Lasix. Subjective: Patient seen and examined at bedside. Denies any chest pain. Continues to have dysuria. Claims that shortness of breath has improved. Pertinent positives and negatives as discussed above, a complete review of systems was performed and all other systems are negative. Vitals Signs Reviewed. General: Nontoxic, no distress, appears at stated age, chronically ill-appearing Derm: Warm, dry, multiple upper extremity bilateral ecchymosis, sacral decubitus ulcer not examined Head: Atraumatic, normocephalic, symmetric Eyes: EOMI, no lid lag, anicteric sclera Mouth: No lip lesion, mucus membranes moist Cardiovascular: S1S2 reg, no murmur Lungs: CTA bilateral, no rhonchi, no rales, no accessory muscle use, supplemental oxygen Abdominal: Soft, nontender to palpation, no guarding, no appreciable organomegaly Ext: No gross muscle atrophy, no edema, no contractures Neuro: CN II-XI grossly intact, no focal neuro deficits Psych: Alert, oriented, appropriate affect Data Reviewed Today: Pertinent Labs: WBC 1 13.3, hemoglobin 8.8, creatinine 0.75, sodium 132, bicarb 36 glucose range between 1 58-1 93 Imaging: Chest x-ray independently interpreted from yesterday, persistent left pleural effusion, interstitial opacities on the right, chest ultrasound shows left pleural effusion pocket size 5 cm Assessment and Plan: Active: Acute on chronic hypoxic respiratory failure Left pleural effusion Interstitial opacities, possible community-acquired pneumonia versus acute pulmonary edema Type II NSTEMI History of CAD History of COPD on 2 L, not in exacerbation Former smoker -Cardiology following, hold off heparinizing patient, troponin already peaked, continue aspirin 81 mg, atorvastatin 40 mg, Zetia 10 mg, metoprolol 25 daily -Pulmonology following, started patient on IV Lasix 40 every 12 hours, monitor electrolytes -Continue ceftriaxone 2 g IV every 24 hours, azithromycin IV 500 mg daily -Blood cultures not obtained on admission, will get sputum cultures, procalcitonin, Legionella urine antigen -On DuoNebs 4 times daily scheduled, every 2 hours as needed, continue home Perforomist twice daily Sepsis secondary to urinary tract infection Candiduria -Patient continued on IV fluconazole 200 mg daily Type 2 diabetes -Continue Levemir 14 units daily, aspart 4 units ACHS, sliding scale insulin, monitor for hypoglycemia Hyponatremia, resolving Hypomagnesemia, resolved Left buttock decubitus ulcer, present on admission -Wound care following Chronic: History of cirrhosis Hypertension PT/OT consulted DVT ppx: Lovenox Code status: Full code Anticipated discharge place: Pending clinical course Anticipated discharge time: Pending clinical course Objective - Vital Signs Vital signs: Vital Signs Temp 100.0 F H 11/23/24 08:30 Pulse 108 H 11/23/24 08:54 Resp 18 11/23/24 08:30 BP 118/68 11/23/24 08:30 Pulse Ox 94 L 11/23/24 08:30 FiO2 Intake & Output 11/22/24 11/23/24 11/23/24 18:59 06:59 18:59 Intake Total 540 Output Total 1000 Balance -460 Weight 83 kg Intake: Oral 540 Output: Urine 1000 Other: Voiding Method Toilet Urinal - Labs CBC & Chem 7: 11/23/24 06:47 11/23/24 06:47 Labs: Abnormal Lab Results - Last 24 Hours (Table) 11/22/24 11/22/24 11/22/24 Range/Units 12:07 12:19 16:50 WBC 12.6 H (3.8-10.6) k/uL RBC 3.18 L (4.30-5.90) m/uL Hgb 8.6 L (13.0-17.5) gm/dL Hct 28.5 L (39.0-53.0) % MCHC 30.3 L (31.0-37.0) g/dL RDW 16.7 H (11.5-15.5) % Sodium (137-145) mmol/L Chloride (98-107) mmol/L Carbon Dioxide (22-30) mmol/L Glucose (74-99) mg/dL POC Glucose (mg/dL) 152 H 159 H (70-110) mg/dL 11/22/24 11/23/24 11/23/24 Range/Units 20:30 05:58 06:47 WBC (3.8-10.6) k/uL RBC (4.30-5.90) m/uL Hgb (13.0-17.5) gm/dL Hct (39.0-53.0) % MCHC (31.0-37.0) g/dL RDW (11.5-15.5) % Sodium 132 L (137-145) mmol/L Chloride 91 L (98-107) mmol/L Carbon Dioxide 36 H (22-30) mmol/L Glucose 158 H (74-99) mg/dL POC Glucose (mg/dL) 193 H 163 H (70-110) mg/dL 11/23/24 11/23/24 Range/Units 06:47 11:28 WBC 13.3 H (3.8-10.6) k/uL RBC 3.28 L (4.30-5.90) m/uL Hgb 8.8 L (13.0-17.5) gm/dL Hct 29.1 L (39.0-53.0) % MCHC 30.4 L (31.0-37.0) g/dL RDW 16.7 H (11.5-15.5) % Sodium (137-145) mmol/L Chloride (98-107) mmol/L Carbon Dioxide (22-30) mmol/L Glucose (74-99) mg/dL POC Glucose (mg/dL) 327 H (70-110) mg/dL Microbiology - Last 24 Hours (Table) 11/21/24 00:45 Urine Culture - Final Urine,Clean Catch Glory glabrata
--- NOTE | 2024-11-23 13:22 | P.PN ---
Subjective Progress Note Date: 11/23/24 Principal diagnosis: Congestive heart failure. This is an 84-year-old male patient with a known history of diabetes mellitus, hypertension, hyperlipidemia, cirrhosis, former smoker, recent severe GI bleeding requiring multiple transfusions, recent IVC filter placed, most of his care has been at [facility] and at [facility]. He has been in inpatient rehabilitation at [facility]. He presented here to the emergency room on 11/20/2024 with complaints of chest pain. Troponin 0.038, 1.150, 0.550. X-ray revealed a large the same. He is seen in the emergency department. Currently sitting up on the stretcher. Awake and alert in no acute distress. Maintaining O2 saturations in the 90s on 3 L/min per nasal cannula. He does have home oxygen as well. ReSound of the chest revealed a 5 cm pleural effusion. White count 12.6. Hemoglobin 8.6. Platelets 364. Sodium 136. Potassium 3.7. Bicarb 37. BUN 16. Creatinine 0.62. Glucose 127. Urinalysis with high WBCs and few bacteria. Progress note dated November 23, 2024. 84-year-old male seen yesterday in consultation. He has a history of diabetes, hypertension, hyperlipidemia, cirrhosis, and previous tobacco use, among other things. The patient was admitted with a diagnosis of probable CHF. When he came to the emergency department, on November 20, he was complaining of shortness of breath, and chest pain. Currently, the patient is resting comfortably in room 356. He is on saline at 20 cc an hour. He is getting nasal O2 at 3 L. White count 13.3, hemoglobin 8.8, hematocrit 29.1, platelet count 368,000. Sodium 132, potassium 3.7, chlorides 91, CO2 36, BUN 14, creatinine 0.75. Calcium 8.7. Glucose is 327. Ultrasound shows a left-sided pleural effusion, to have a 5 cm pocket. Objective - Vital Signs Vital signs: Vital Signs Temp 100.0 F H 11/23/24 08:30 Pulse 108 H 11/23/24 08:54 Resp 18 11/23/24 08:30 BP 118/68 11/23/24 08:30 Pulse Ox 94 L 11/23/24 08:30 FiO2 Intake & Output 11/22/24 11/23/24 11/23/24 18:59 06:59 18:59 Intake Total 540 300 Output Total 1000 500 Balance -460 -200 Weight 83 kg Intake: Intake, IV Titration 300 Amount Azithromycin 500 mg In 250 Sodium Chloride 0.9% 250 ml @ 250 mls/hr IVPB DAILY [facility] Rx#:[id number] cefTRIAXone 2 gm In 50 Sodium Chloride 0.9% 50 ml @ 100 mls/hr IVPB Q24HR [facility] Rx#:[id number] Oral 540 Output: Urine 1000 500 Other: Voiding Method Toilet Toilet Urinal Urinal - Exam No acute distress, oriented 3. The patient is currently on 3 L of oxygen. HEENT examination is grossly unremarkable. Mucous membranes are moist. No oral lesions. Neck supple. Full range of motion. No adenopathy thyromegaly or neck vein distention. Cardiovascular examination reveals regular rhythm rate. S1-S2 normal. No S3 or S4. No discernible murmur noted. Lungs reveal bilateral crackles, left greater than right. No wheezes. No rhonchi. Abdomen soft bowel sounds are heard. No masses or tenderness. Extremities are intact. No cyanosis or clubbing. Mild edema is noted. Skin is without rash or lesion. Neurologic examination is brief but nonfocal. - Labs CBC & Chem 7: 11/23/24 06:47 11/23/24 06:47 Labs: Abnormal Lab Results - Last 24 Hours (Table) 11/22/24 11/22/24 11/23/24 Range/Units 16:50 20:30 05:58 WBC (3.8-10.6) k/uL RBC (4.30-5.90) m/uL Hgb (13.0-17.5) gm/dL Hct (39.0-53.0) % MCHC (31.0-37.0) g/dL RDW (11.5-15.5) % Sodium (137-145) mmol/L Chloride (98-107) mmol/L Carbon Dioxide (22-30) mmol/L Glucose (74-99) mg/dL POC Glucose (mg/dL) 159 H 193 H 163 H (70-110) mg/dL 11/23/24 11/23/24 11/23/24 Range/Units 06:47 06:47 11:28 WBC 13.3 H (3.8-10.6) k/uL RBC 3.28 L (4.30-5.90) m/uL Hgb 8.8 L (13.0-17.5) gm/dL Hct 29.1 L (39.0-53.0) % MCHC 30.4 L (31.0-37.0) g/dL RDW 16.7 H (11.5-15.5) % Sodium 132 L (137-145) mmol/L Chloride 91 L (98-107) mmol/L Carbon Dioxide 36 H (22-30) mmol/L Glucose 158 H (74-99) mg/dL POC Glucose (mg/dL) 327 H (70-110) mg/dL Assessment and Plan Assessment: Acute non-ST segment elevation myocardial infarction. Moderate left pleural effusion, possibly chronic in nature. History of coronary disease with a totally occluded RCA. Recent severe GI bleed requiring multiple blood transfusions mainly at [facility]. Recent IVC filter placed at [facility]. Chronic obstructive pulmonary disease on home oxygen. History of abdominal aortic aneurysm status post endovascular repair. Hypertension. Former smoker. Hyperlipidemia. Diabetes mellitus. General medical debility. Plan: Plan dated November 23, 2024. The patient is seen today in room 356. He continues on oxygen at 3 L. He is getting saline at 20 cc an hour. His examination is consistent with mild CHF. He has mild lower extremity edema. He has some mild bibasilar crackles. The patient continues on Lasix. No additional recommendations are made. Procalcitonin level was 0.09. Antibiotics will be discontinued. We will continue to follow make recommendations along the way. Prognosis is guarded. Time with Patient: Less than 30
--- NOTE | 2024-11-23 16:03 | P.PN ---
Subjective Progress Note Date: 11/23/24 This is a pleasant 84-year-old male patient followed in the past with Dr. Phoenix but most recently has been following with Dr. Ortiz with past medical history of AAA status post endovascular repair, hypertension, prior tobacco abuse quit 30 years ago, hyperlipidemia, CAD, diabetes type 2, COPD. Over the past 2 months has been hospitalized for pleural effusion and required thoracentesis done at [facility]. Also history of recent severe GI bleed with severe anemia requiring transfusion. According to the patient he also underwent placement of a filter by Dr. Francis done recently at [facility]. he has been at [facility] for rehab. Presented to the emergency department with complaints of shortness of breath and sudden onset chest discomfort after getting up off the toilet. At the time my examination patient is resting comfortably in the ER. Denies any current complaints of chest discomfort. Diagnostics -EKG: Sinus tachycardia with right bundle branch block -Chest x-ray: Sinus with pneumonitis and large left pleural effusion -Laboratory studies: Blood cell count 16.2, hemoglobin 9.5, sodium 133, BUN 23, creatinine 0.8, NT proBNP 1620. Troponin 0.038, 1.29 and third pending -Home cardiac medications: Metoprolol succinate 25 mg p.o. daily, Lasix 40 mg p.o. daily, ezetimibe 10 mg p.o. nightly and aspirin 81 mg p.o. daily -Prior stress test: November 2022 inferior ischemia -Echocardiogram: January 2023 EF 50% -Cardiac catheterization: November 2022 30 to 40% LAD stenosis, 20% left main stenosis and 100% distal RCA stenosis with [id number] collaterals 11/22/2024 Patient was seen and examined sitting up in bed eating breakfast. He overall has no chest discomfort or shortness of breath. He complains of diffuse joint and muscle aches related to the stretcher he is sleeping on. Echocardiogram with Doppler study showed EF of 50-55% with inferobasal and mid basal hypokinesis, mild MVP and mild MR. Records from [facility] reviewed. It appears patient was admitted there for evaluation of pleural effusion felt to be chronic and loculated and no intervention was done. 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 He was anticoagulated on warfarin upon discharge from [facility] and was readmitted to [facility] with a hemoglobin 5.6, requiring transfusion. Following that anticoagulation was discontinued and he had a filter placed by Dr. Francis. 11/23/2024 Hb 8.8, creatinine 0.7, heart rate 106 bpm, BP 133/89 PHYSICAL EXAMINATION: This is a 84-year-old gentleman in no apparent distress at the time of my examination. VITAL SIGNS: Reviewed. HEENT: Head is atraumatic, normocephalic. Pupils are equal, round. Sclerae anicteric. Conjunctivae are clear. Mucous membranes of the mouth are moist. Neck is supple. There is no elevated jugular venous pressure. No carotid bruit is heard. CHEST EXAMINATION: Clear to auscultation bilaterally. No wheezes rales or rhonchi. Respirations even and nonlabored. HEART EXAMINATION: Heart regular, positive S1 and S2. No S3. No S4. Soft systolic murmur. ABDOMEN: Soft, nontender. Bowel sounds are heard. No organomegaly noted. EXTREMITIES: 2+ peripheral pulses with evidence of trace peripheral edema and no calf tenderness noted. NEUROLOGIC EXAMINATION: Patient is awake, alert and oriented x3. Assessment: 1. NSTEMI 2. CAD with known total occluded RCA 3. Recent severe GI bleed requiring transfusions 4. Pleural effusion, chronic, loculated 5. Recent filter insertion Plan: From cardiology's perspective continue aspirin, atorvastatin, ezetimibe and metoprolol. Patient is currently chest pain-free. We will continue to follow the patient provide further recommendations accordingly. Objective - Vital Signs Vital signs: Vital Signs Temp 100.0 F H 11/23/24 08:30 Pulse 100 11/23/24 15:02 Resp 18 11/23/24 08:30 BP 118/68 11/23/24 08:30 Pulse Ox 94 L 11/23/24 08:30 FiO2 Intake & Output 11/22/24 11/23/24 11/23/24 18:59 06:59 18:59 Intake Total 540 300 Output Total 1000 500 Balance -460 -200 Weight 83 kg Intake: Intake, IV Titration 300 Amount Azithromycin 500 mg In 250 Sodium Chloride 0.9% 250 ml @ 250 mls/hr IVPB DAILY [facility] Rx#:[id number] cefTRIAXone 2 gm In 50 Sodium Chloride 0.9% 50 ml @ 100 mls/hr IVPB Q24HR [facility] Rx#:[id number] Oral 540 Output: Urine 1000 500 Other: Voiding Method Toilet Toilet Urinal Urinal - Labs CBC & Chem 7: 11/23/24 06:47 11/23/24 06:47 Labs: Abnormal Lab Results - Last 24 Hours (Table) 11/22/24 11/22/24 11/23/24 Range/Units 16:50 20:30 05:58 WBC (3.8-10.6) k/uL RBC (4.30-5.90) m/uL Hgb (13.0-17.5) gm/dL Hct (39.0-53.0) % MCHC (31.0-37.0) g/dL RDW (11.5-15.5) % Sodium (137-145) mmol/L Chloride (98-107) mmol/L Carbon Dioxide (22-30) mmol/L Glucose (74-99) mg/dL POC Glucose (mg/dL) 159 H 193 H 163 H (70-110) mg/dL 11/23/24 11/23/24 11/23/24 Range/Units 06:47 06:47 11:28 WBC 13.3 H (3.8-10.6) k/uL RBC 3.28 L (4.30-5.90) m/uL Hgb 8.8 L (13.0-17.5) gm/dL Hct 29.1 L (39.0-53.0) % MCHC 30.4 L (31.0-37.0) g/dL RDW 16.7 H (11.5-15.5) % Sodium 132 L (137-145) mmol/L Chloride 91 L (98-107) mmol/L Carbon Dioxide 36 H (22-30) mmol/L Glucose 158 H (74-99) mg/dL POC Glucose (mg/dL) 327 H (70-110) mg/dL
[2024-11-23 16:17] LABS: Glucose,Whole Blood 175 mg/dL (70-110)
[2024-11-23] MEDS: ENOXAPARIN 40 MG/0.4 ML SYRINGE SQ SCH (19:17)
[2024-11-23 19:51] LABS: Glucose,Whole Blood 226 mg/dL (70-110)
[2024-11-24 06:06] LABS: Glucose,Whole Blood 143 mg/dL (70-110)
[2024-11-24 06:43] LABS: Anisocytosis Slight; Basophils % (A) 0 %; Eosinophils # (A) 0.2 k/uL (0-0.7); Eosinophils % (A) 2 %; HCT 28.1 % (39.0-53.0); HGB 8.6 gm/dL (13.0-17.5); Hypochromasia Marked; Lymphocytes # (A) 1.1 k/uL (1.0-4.8); Lymphocytes % (A) 10 %; MCH 27.4 pg (25.0-35.0); MCHC 30.7 g/dL (31.0-37.0); Mean Platelet Volume 6.9; Monocytes # (A) 0.8 k/uL (0-1.0); Monocytes % (A) 7 %; Neutrophils # (A) 8.9 k/uL (1.3-7.7); Neutrophils % (A) 80 %; Platelet Count 302 k/uL (150-450); Poikilocytosis Slight; RBC 3.15 m/uL (4.30-5.90); RDW 16.5 % (11.5-15.5); WBC 11.2 k/uL (3.8-10.6)
[2024-11-24 07:06] LABS: African American GFR (CKD) >90 (>60 ml/min/1.73 sqM); Anion Gap 4 mmol/L; Blood Urea Nitrogen 13 mg/dL (9-20); Calcium 8.1 mg/dL (8.4-10.2); Carbon Dioxide 36 mmol/L (22-30); Chloride 94 mmol/L (98-107); Glucose 119 mg/dL (74-99); Magnesium 1.3 mg/dL (1.6-2.3); Non-African American GFR(CKD) 86 (>60 ml/min/1.73 sqM); Potassium 3.4 mmol/L (3.5-5.1); Sodium 134 mmol/L (137-145)
[2024-11-24] MEDS: POTASSIUM CHLORIDE ER 20 MEQ TAB.ER PO STA (09:56)
[2024-11-24] MEDS: MAGNESIUM SULFATE-D5W PMX 1 GM in DEXTROSE/WATER 1 100ML.BAG IVPB SCH (09:57)
--- NOTE | 2024-11-24 11:28 | P.PN ---
Subjective Progress Note Date: 11/24/24 Hospital Course: 84-year-old male with History of AAA status post endovascular repair, hyperten luke, previous tobacco abuse and quit 30 years ago, hyperlipidemia, mild alcohol use, coronary artery disease including 30 to 40% LAD stenosis, 20% left main stenosis and 100% distal RCA stenosis with [id number] collaterals, type II diabetes mellitus, cirrhosis and COPD normally on 2 L continuous presented to the emergency department for chest pain and shortness of breath. Also been complaining of significant dysuria. Vitals on admission temperature 98, pulse rate 91, respiratory rate 22, blood pressure 117/66, O2 sat 97% on nasal cannula at 5 L/min EKG independently interpreted as sinus tachycardia with occasional supraventricular premature complexes with a ventricular rate of 120 bpm, possible right ventricular hypertrophy, QTc interval of 398 ms, with ST-segment depression noted in leads V2-V4. CXR shows bronchitis with pneumonitis and large left pleural effusion. Labs on admission show WBC 16.2, hemoglobin 9.5, hematocrit 31.3, platelets 443, neutrophils 14.8, PT 10.4, PTT 18.5, INR 0.9, sodium 133, potassium 4.3, chloride 94, carbon dioxide 31, BUN 23, creatinine 0.8, glucose 398, magnesium 1.4, troponin 0.038, BNP 1620 UA shows cloudy urine, negative for urine nitrites, large leukocyte esterase, few bacteria Troponin peaked at 1.550. Patient was not heparinized. Likely type II NSTEMI. Urine cultures growing Glory glabrata. Started on IV fluconazole. Also pamela rned about possible COVID-pneumonia, on IV antibiotics. Pulmonology consulted. Patient also started on IV Lasix. Subjective: Patient seen and examined at bedside. Denies any chest pain. Continues to have dysuria. Claims that shortness of breath has improved. Pertinent positives and negatives as discussed above, a complete review of systems was performed and all other systems are negative. Vitals Signs Reviewed. General: Nontoxic, no distress, appears at stated age, chronically ill-appearing Derm: Warm, dry, multiple upper extremity bilateral ecchymosis, sacral decubitus ulcer not examined Head: Atraumatic, normocephalic, symmetric Eyes: EOMI, no lid lag, anicteric sclera Mouth: No lip lesion, mucus membranes moist Cardiovascular: S1S2 reg, no murmur Lungs: CTA bilateral, no rhonchi, no rales, no accessory muscle use, supplemental oxygen Abdominal: Soft, nontender to palpation, no guarding, no appreciable organomegaly Ext: No gross muscle atrophy, no edema, no contractures Neuro: CN II-XI grossly intact, no focal neuro deficits Psych: Alert, oriented, appropriate affect Data Reviewed Today: Pertinent Labs: WBC 11.2, hemoglobin 8.6, potassium 3.4, magnesium 1.3, creat inine 0.73, blood sugars range between 119-226 Imaging: No new imaging Assessment and Plan: Active: Acute on chronic hypoxic respiratory failure Left pleural effusion Interstitial opacities, likely acute pulmonary edema Type II NSTEMI History of CAD History of COPD on 2 L, not in exacerbation Former smoker -Cardiology following, continue aspirin 81 mg, atorvastatin 40 mg, Zetia 10 mg, metoprolol 25 daily -Pulmonology following, patient on IV Lasix 40 every 12 hours, monitor electrolytes -IV antibiotics discontinued -On DuoNebs 4 times daily scheduled, every 2 hours as needed, continue home Pe rforomist twice daily Sepsis secondary to urinary tract infection Candiduria -Patient continued on IV fluconazole 200 mg daily Type 2 diabetes -Continue Levemir 14 units daily, aspart 4 units ACHS, sliding scale insulin, monitor for hypoglycemia Hyponatremia, resolving Hypomagnesemia -4 g of IV magnesium sulfate Hypokalemia -Oral 40 mill equivalent potassium Left buttock decubitus ulcer, present on admission -Wound care following Chronic: History of cirrhosis Hypertension PT/OT consulted DVT ppx: Lovenox Code status: Full code Anticipated discharge place: Pending clinical course Anticipated discharge time: Pending clinical course Objective - Vital Signs Vital signs: Vital Signs Temp 97.9 F 11/24/24 08:30 Pulse 89 11/24/24 09:46 Resp 17 11/24/24 08:30 BP 106/69 11/24/24 08:30 Pulse Ox 97 11/24/24 09:29 FiO2 Intake & Output 11/23/24 11/24/24 11/24/24 18:59 06:59 18:59 Intake Total 300 20 393 Output Total 500 1200 Balance -200 -1180 393 Weight 81 kg Intake: IV 20 10 Invasive Line 2 20 10 Intake, IV Titration 300 Amount Azithromycin 500 mg In 250 Sodium Chloride 0.9% 250 ml @ 250 mls/hr IVPB DAILY [facility] Rx#:[id number] cefTRIAXone 2 gm In 50 Sodium Chloride 0.9% 50 ml @ 100 mls/hr IVPB Q24HR [facility] Rx#:[id number] Oral 383 Output: Urine 500 1200 Other: Voiding Method Toilet Toilet Toilet Urinal Urinal Urinal # Voids 1 - Labs CBC & Chem 7: 11/24/24 05:38 11/24/24 05:38 Labs: Abnormal Lab Results - Last 24 Hours (Table) 11/23/24 11/23/24 11/23/24 Range/Units 11:28 16:15 19:51 WBC (3.8-10.6) k/uL RBC (4.30-5.90) m/uL Hgb (13.0-17.5) gm/dL Hct (39.0-53.0) % MCHC (31.0-37.0) g/dL RDW (11.5-15.5) % Neutrophils # (1.3-7.7) k/uL Sodium (137-145) mmol/L Potassium (3.5-5.1) mmol/L Chloride (98-107) mmol/L Carbon Dioxide (22-30) mmol/L Glucose (74-99) mg/dL POC Glucose (mg/dL) 327 H 175 H 226 H (70-110) mg/dL Calcium (8.4-10.2) mg/dL Magnesium (1.6-2.3) mg/dL 11/24/24 11/24/24 11/24/24 Range/Units 05:38 05:38 06:05 WBC 11.2 H (3.8-10.6) k/uL RBC 3.15 L (4.30-5.90) m/uL Hgb 8.6 L (13.0-17.5) gm/dL Hct 28.1 L (39.0-53.0) % MCHC 30.7 L (31.0-37.0) g/dL RDW 16.5 H (11.5-15.5) % Neutrophils # 8.9 H (1.3-7.7) k/uL Sodium 134 L (137-145) mmol/L Potassium 3.4 L (3.5-5.1) mmol/L Chloride 94 L (98-107) mmol/L Carbon Dioxide 36 H (22-30) mmol/L Glucose 119 H (74-99) mg/dL POC Glucose (mg/dL) 143 H (70-110) mg/dL Calcium 8.1 L (8.4-10.2) mg/dL Magnesium 1.3 L (1.6-2.3) mg/dL
[2024-11-24 11:43] LABS: Glucose,Whole Blood 216 mg/dL (70-110)
--- NOTE | 2024-11-24 13:04 | P.PN ---
Subjective Progress Note Date: 11/24/24 Principal diagnosis: Congestive heart failure. This is an 84-year-old male patient with a known history of diabetes mellitus, hypertension, hyperlipidemia, cirrhosis, former smoker, recent severe GI bleeding requiring multiple transfusions, recent IVC filter placed, most of his care has been at [facility] and at [facility]. He has been in inpatient rehabilitation at [facility]. He presented here to the emergency room on 11/20/2024 with complaints of chest pain. Troponin 0.038, 1.150, 0.550. X-ray revealed a large the same. He is seen in the emergency department. Currently sitting up on the stretcher. Awake and alert in no acute distress. Maintaining O2 saturations in the 90s on 3 L/min per nasal cannula. He does have home oxygen as well. ReSound of the chest revealed a 5 cm pleural effusion. White count 12.6. Hemoglobin 8.6. Platelets 364. Sodium 136. Potassium 3.7. Bicarb 37. BUN 16. Creatinine 0.62. Glucose 127. Urinalysis with high WBCs and few bacteria. Progress note dated November 23, 2024. 84-year-old male seen yesterday in consultation. He has a history of diabetes, hypertension, hyperlipidemia, cirrhosis, and previous tobacco use, among other things. The patient was admitted with a diagnosis of probable CHF. When he came to the emergency department, on November 20, he was complaining of shortness of breath, and chest pain. Currently, the patient is resting comfortably in room 356. He is on saline at 20 cc an hour. He is getting nasal O2 at 3 L. White count 13.3, hemoglobin 8.8, hematocrit 29.1, platelet count 368,000. Sodium 132, potassium 3.7, chlorides 91, CO2 36, BUN 14, creatinine 0.75. Calcium 8.7. Glucose is 327. Ultrasound shows a left-sided pleural effusion, to have a 5 cm pocket. Progress note dated November 24, 2024. 84-year-old male seen in consultation 2 days ago. The patient was admitted with a diagnosis of CHF. The patient has a history of diabetes, hypertension, hyperlipidemia, and cirrhosis among other things. Currently, the patient is resting comfortably in bed. He is not receiving any IV fluids. He continues on nasal O2 at 3 L. Saturations are 97%. Procalcitonin level was normal at 0.09. White count 11.2, hemoglobin 8.6, hematocrit 28.1, platelet count 01/29/2000. Sodium 134, potassium 3.4, chlorides 94, CO2 36, BUN 13, creatinine 0.73. Glucose is 216. Calcium 8.1. Magnesium 1.3. Objective - Vital Signs Vital signs: Vital Signs Temp 97.9 F 11/24/24 08:30 Pulse 84 11/24/24 12:48 Resp 17 11/24/24 08:30 BP 106/69 11/24/24 08:30 Pulse Ox 97 11/24/24 09:29 FiO2 Intake & Output 11/23/24 11/24/24 11/24/24 18:59 06:59 18:59 Intake Total 300 20 393 Output Total 500 1200 Balance -200 -1180 393 Weight 81 kg Intake: IV 20 10 Invasive Line 2 20 10 Intake, IV Titration 300 Amount Azithromycin 500 mg In 250 Sodium Chloride 0.9% 250 ml @ 250 mls/hr IVPB DAILY [facility] Rx#:[id number] cefTRIAXone 2 gm In 50 Sodium Chloride 0.9% 50 ml @ 100 mls/hr IVPB Q24HR [facility] Rx#:[id number] Oral 383 Output: Urine 500 1200 Other: Voiding Method Toilet Toilet Toilet Urinal Urinal Urinal # Voids 1 - Exam No acute distress, oriented 3. The patient is currently on 3 L of oxygen. HEENT examination is grossly unremarkable. Mucous membranes are moist. No oral lesions. Neck supple. Full range of motion. No adenopathy thyromegaly or neck vein distention. Cardiovascular examination reveals regular rhythm rate. S1-S2 normal. No S3 or S4. No discernible murmur noted. Lungs reveal bilateral crackles, left greater than right. No wheezes. No rhonchi. Abdomen soft bowel sounds are heard. No masses or tenderness. Extremities are intact. No cyanosis or clubbing. Mild edema is noted. Skin is without rash or lesion. Neurologic examination is brief but nonfocal. - Labs CBC & Chem 7: 11/24/24 05:38 11/24/24 05:38 Labs: Abnormal Lab Results - Last 24 Hours (Table) 11/23/24 11/23/24 11/24/24 Range/Units 16:15 19:51 05:38 WBC 11.2 H (3.8-10.6) k/uL RBC 3.15 L (4.30-5.90) m/uL Hgb 8.6 L (13.0-17.5) gm/dL Hct 28.1 L (39.0-53.0) % MCHC 30.7 L (31.0-37.0) g/dL RDW 16.5 H (11.5-15.5) % Neutrophils # 8.9 H (1.3-7.7) k/uL Sodium (137-145) mmol/L Potassium (3.5-5.1) mmol/L Chloride (98-107) mmol/L Carbon Dioxide (22-30) mmol/L Glucose (74-99) mg/dL POC Glucose (mg/dL) 175 H 226 H (70-110) mg/dL Calcium (8.4-10.2) mg/dL Magnesium (1.6-2.3) mg/dL 11/24/24 11/24/24 11/24/24 Range/Units 05:38 06:05 11:42 WBC (3.8-10.6) k/uL RBC (4.30-5.90) m/uL Hgb (13.0-17.5) gm/dL Hct (39.0-53.0) % MCHC (31.0-37.0) g/dL RDW (11.5-15.5) % Neutrophils # (1.3-7.7) k/uL Sodium 134 L (137-145) mmol/L Potassium 3.4 L (3.5-5.1) mmol/L Chloride 94 L (98-107) mmol/L Carbon Dioxide 36 H (22-30) mmol/L Glucose 119 H (74-99) mg/dL POC Glucose (mg/dL) 143 H 216 H (70-110) mg/dL Calcium 8.1 L (8.4-10.2) mg/dL Magnesium 1.3 L (1.6-2.3) mg/dL Assessment and Plan Assessment: Acute non-ST segment elevation myocardial infarction. Moderate left pleural effusion, possibly chronic in nature. History of coronary disease with a totally occluded RCA. Recent severe GI bleed requiring multiple blood transfusions mainly at [facility]. Recent IVC filter placed at [facility]. Chronic obstructive pulmonary disease on home oxygen. History of abdominal aortic aneurysm status post endovascular repair. Hypertension. Former smoker. Hyperlipidemia. Diabetes mellitus. General medical debility. Plan: Plan dated November 23, 2024. The patient is seen today in room 356. He continues on oxygen at 3 L. He is getting saline at 20 cc an hour. His examination is consistent with mild CHF. He has mild lower extremity edema. He has some mild bibasilar crackles. The patient continues on Lasix. No additional recommendations are made. Procalcitonin level was 0.09. Antibiotics will be discontinued. We will continue to follow make recommendations along the way. Prognosis is guarded. Plan dated November 24, 2023. The patient is seen today in room 356. The patient is currently on 3 L. He is sitting at the side of the bed. There is no respiratory distress or difficulty. The nurses in the room with him. Labs, x-rays, and all medications are reviewed. The patient states that he is feeling better. Chest ultrasound revealed a relatively small left pleural effusion pocket size of 5 cm. No need for thoracentesis at this time. We will continue to follow the patient, make recommendations along the way. Time with Patient: Less than 30
--- NOTE | 2024-11-24 13:12 | P.PN ---
Subjective Progress Note Date: 11/24/24 This is a pleasant 84-year-old male patient followed in the past with Dr. Phoenix but most recently has been following with Dr. Ortiz with past medical history of AAA status post endovascular repair, hypertension, prior tobacco abuse quit 30 years ago, hyperlipidemia, CAD, diabetes type 2, COPD. Over the past 2 months has been hospitalized for pleural effusion and required thoracentesis done at [facility]. Also history of recent severe GI bleed with severe anemia requiring transfusion. According to the patient he also underwent placement of a filter by Dr. Francis done recently at [facility]. he has been at [facility] for rehab. Presented to the emergency department with complaints of shortness of breath and sudden onset chest discomfort after getting up off the toilet. At the time my examination patient is resting comfortably in the ER. Denies any current complaints of chest discomfort. Diagnostics -EKG: Sinus tachycardia with right bundle branch block -Chest x-ray: Sinus with pneumonitis and large left pleural effusion -Laboratory studies: Blood cell count 16.2, hemoglobin 9.5, sodium 133, BUN 23, creatinine 0.8, NT proBNP 1620. Troponin 0.038, 1.29 and third pending -Home cardiac medications: Metoprolol succinate 25 mg p.o. daily, Lasix 40 mg p.o. daily, ezetimibe 10 mg p.o. nightly and aspirin 81 mg p.o. daily -Prior stress test: November 2022 inferior ischemia -Echocardiogram: January 2023 EF 50% -Cardiac catheterization: November 2022 30 to 40% LAD stenosis, 20% left main stenosis and 100% distal RCA stenosis with [id number] collaterals 11/22/2024 Patient was seen and examined sitting up in bed eating breakfast. He overall has no chest discomfort or shortness of breath. He complains of diffuse joint and muscle aches related to the stretcher he is sleeping on. Echocardiogram with Doppler study showed EF of 50-55% with inferobasal and mid basal hypokinesis, mild MVP and mild MR. Records from [facility] reviewed. It appears patient was admitted there for evaluation of pleural effusion felt to be chronic and loculated and no intervention was done. 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 He was anticoagulated on warfarin upon discharge from [facility] and was readmitted to [facility] with a hemoglobin 5.6, requiring transfusion. Following that anticoagulation was discontinued and he had a filter placed by Dr. Francis. 11/23/2024 Hb 8.8, creatinine 0.7, heart rate 106 bpm, BP 133/89 11/24/24 Patient seen and examined. Patient states that his breathing is better today. He denies having any chest pain, palpitations or dizziness. He is currently on IV Lasix which we will plan to transition to oral. Blood pressure 106/69, heart rate 87-108, pulse ox 94% on 2 L nasal cannula. Repeat blood work reveals WBC 11.2, hemoglobin 8.6, sodium 134, potassium 3.4, BUN 13 creatinine 0.73. Pot assium has been replaced. PHYSICAL EXAMINATION: This is a 84-year-old gentleman in no apparent distress at the time of my examination. VITAL SIGNS: Reviewed. HEENT: Head is atraumatic, normocephalic. Pupils are equal, round. Sclerae anicteric. Conjunctivae are clear. Mucous membranes of the mouth are moist. Neck is supple. There is no elevated jugular venous pressure. No carotid bruit is heard. CHEST EXAMINATION: Clear to auscultation bilaterally. No wheezes rales or rhonchi. Respirations even and nonlabored. HEART EXAMINATION: Heart regular, positive S1 and S2. No S3. No S4. Soft syst olic murmur. ABDOMEN: Soft, nontender. Bowel sounds are heard. No organomegaly noted. EXTREMITIES: 2+ peripheral pulses with evidence of trace peripheral edema and no calf tenderness noted. NEUROLOGIC EXAMINATION: Patient is awake, alert and oriented x3. Assessment: 1. NSTEMI 2. CAD with known total occluded RCA 3. Recent severe GI bleed requiring transfusions 4. Pleural effusion, chronic, loculated 5. Recent filter insertion Plan: From cardiology's perspective continue aspirin, atorvastatin, ezetimibe and metoprolol. Transition IV Lasix to oral 40 mg twice daily Monitor RILEY, daily weights, electrolytes and renal function Anticipate patient will be ready for discharge in the next 24 hours Patient is currently chest pain-free. We will continue to follow the patient provide further recommendations accordingly. Nurse practitioner note has been reviewed, I agree with documented findings and plan of care. Patient was seen and examined. Objective - Vital Signs Vital signs: Vital Signs Temp 97.9 F 11/24/24 08:30 Pulse 108 H 11/24/24 08:30 Resp 17 11/24/24 08:30 BP 106/69 11/24/24 08:30 Pulse Ox 94 L 11/24/24 08:30 FiO2 Intake & Output 11/23/24 11/24/24 11/24/24 18:59 06:59 18:59 Intake Total 300 20 Output Total 500 1200 Balance -200 -1180 Weight 81 kg Intake: IV 20 Invasive Line 2 20 Intake, IV Titration 300 Amount Azithromycin 500 mg In 250 Sodium Chloride 0.9% 250 ml @ 250 mls/hr IVPB DAILY LAZARO Rx#:[id number] cefTRIAXone 2 gm In 50 Sodium Chloride 0.9% 50 ml @ 100 mls/hr IVPB Q24HR LAZARO Rx#:[id number] Output: Urine 500 1200 Other: Voiding Method Toilet Toilet Urinal Urinal # Voids 1 - Labs CBC & Chem 7: 11/24/24 05:38 11/24/24 05:38 Labs: Abnormal Lab Results - Last 24 Hours (Table) 11/23/24 11/23/24 11/23/24 Range/Units 11:28 16:15 19:51 WBC (3.8-10.6) k/uL RBC (4.30-5.90) m/uL Hgb (13.0-17.5) gm/dL Hct (39.0-53.0) % MCHC (31.0-37.0) g/dL RDW (11.5-15.5) % Neutrophils # (1.3-7.7) k/uL Sodium (137-145) mmol/L Potassium (3.5-5.1) mmol/L Chloride (98-107) mmol/L Carbon Dioxide (22-30) mmol/L Glucose (74-99) mg/dL POC Glucose (mg/dL) 327 H 175 H 226 H (70-110) mg/dL Calcium (8.4-10.2) mg/dL Magnesium (1.6-2.3) mg/dL 11/24/24 11/24/24 11/24/24 Range/Units 05:38 05:38 06:05 WBC 11.2 H (3.8-10.6) k/uL RBC 3.15 L (4.30-5.90) m/uL Hgb 8.6 L (13.0-17.5) gm/dL Hct 28.1 L (39.0-53.0) % MCHC 30.7 L (31.0-37.0) g/dL RDW 16.5 H (11.5-15.5) % Neutrophils # 8.9 H (1.3-7.7) k/uL Sodium 134 L (137-145) mmol/L Potassium 3.4 L (3.5-5.1) mmol/L Chloride 94 L (98-107) mmol/L Carbon Dioxide 36 H (22-30) mmol/L Glucose 119 H (74-99) mg/dL POC Glucose (mg/dL) 143 H (70-110) mg/dL Calcium 8.1 L (8.4-10.2) mg/dL Magnesium 1.3 L (1.6-2.3) mg/dL
[2024-11-24 16:29] LABS: Glucose,Whole Blood 287 mg/dL (70-110)
[2024-11-24] MEDS: FUROSEMIDE 40 MG TAB PO SCH (16:48)
[2024-11-24 20:09] LABS: Glucose,Whole Blood 209 mg/dL (70-110)
[2024-11-25 06:06] LABS: Glucose,Whole Blood 191 mg/dL (70-110)
[2024-11-25 06:38] LABS: Anisocytosis Slight; Basophils % (A) 0 %; Eosinophils # (A) 0.2 k/uL (0-0.7); Eosinophils % (A) 2 %; HCT 27.9 % (39.0-53.0); HGB 8.6 gm/dL (13.0-17.5); Hypochromasia Marked; Lymphocytes # (A) 0.9 k/uL (1.0-4.8); Lymphocytes % (A) 9 %; MCH 27.3 pg (25.0-35.0); MCHC 30.8 g/dL (31.0-37.0); MCV 88.9 fL (80.0-100.0); Mean Platelet Volume 6.7; Monocytes # (A) 0.8 k/uL (0-1.0); Monocytes % (A) 7 %; Neutrophils # (A) 8.4 k/uL (1.3-7.7); Neutrophils % (A) 81 %; Platelet Count 296 k/uL (150-450); RBC 3.14 m/uL (4.30-5.90); RDW 16.6 % (11.5-15.5); WBC 10.4 k/uL (3.8-10.6)
[2024-11-25 06:50] LABS: African American GFR (CKD) >90 (>60 ml/min/1.73 sqM); Anion Gap 6 mmol/L; Blood Urea Nitrogen 13 mg/dL (9-20); Carbon Dioxide 32 mmol/L (22-30); Chloride 94 mmol/L (98-107); Glucose 175 mg/dL (74-99); Magnesium 1.9 mg/dL (1.6-2.3); Non-African American GFR(CKD) 90 (>60 ml/min/1.73 sqM); Potassium 3.6 mmol/L (3.5-5.1); Sodium 132 mmol/L (137-145)
[2024-11-25 11:42] LABS: Glucose,Whole Blood 225 mg/dL (70-110)
--- NOTE | 2024-11-25 14:03 | P.PN ---
Subjective Progress Note Date: 11/25/24 Principal diagnosis: Congestive heart failure. This is an 84-year-old male patient with a known history of diabetes mellitus, hypertension, hyperlipidemia, cirrhosis, former smoker, recent severe GI bleeding requiring multiple transfusions, recent IVC filter placed, most of his care has been at [facility] and at [facility]. He has been in inpatient rehabilitation at [facility]. He presented here to the emergency room on 11/20/2024 with complaints of chest pain. Troponin 0.038, 1.150, 0.550. X-ray revealed a large the same. He is seen in the emergency department. Currently sitting up on the stretcher. Awake and alert in no acute distress. Maintaining O2 saturations in the 90s on 3 L/min per nasal cannula. He does have home oxygen as well. ReSound of the chest revealed a 5 cm pleural effusion. White count 12.6. Hemoglobin 8.6. Platelets 364. Sodium 136. Potassium 3.7. Bicarb 37. BUN 16. Creatinine 0.62. Glucose 127. Urinalysis with high WBCs and few bacteria. Progress note dated November 23, 2024. 84-year-old male seen yesterday in consultation. He has a history of diabetes, hypertension, hyperlipidemia, cirrhosis, and previous tobacco use, among other things. The patient was admitted with a diagnosis of probable CHF. When he came to the emergency department, on November 20, he was complaining of shortness of breath, and chest pain. Currently, the patient is resting comfortably in room 356. He is on saline at 20 cc an hour. He is getting nasal O2 at 3 L. White count 13.3, hemoglobin 8.8, hematocrit 29.1, platelet count 368,000. Sodium 132, potassium 3.7, chlorides 91, CO2 36, BUN 14, creatinine 0.75. Calcium 8.7. Glucose is 327. Ultrasound shows a left-sided pleural effusion, to have a 5 cm pocket. Progress note dated November 24, 2024. 84-year-old male seen in consultation 2 days ago. The patient was admitted with a diagnosis of CHF. The patient has a history of diabetes, hypertension, hyperlipidemia, and cirrhosis among other things. Currently, the patient is resting comfortably in bed. He is not receiving any IV fluids. He continues on nasal O2 at 3 L. Saturations are 97%. Procalcitonin level was normal at 0.09. White count 11.2, hemoglobin 8.6, hematocrit 28.1, platelet count 01/29/2000. Sodium 134, potassium 3.4, chlorides 94, CO2 36, BUN 13, creatinine 0.73. Glucose is 216. Calcium 8.1. Magnesium 1.3. Progress note dated November 25, 2024. 84-year-old male seen in consultation 3 days ago. The patient was diagnosed and admitted with CHF. The patient has a history of diabetes, hypertension, and hyperlipidemia, among other things. Currently, he is seen in room 356. He is on 2 L of oxygen. He is getting saline at 20 cc an hour. The patient is getting fluconazole for a Glory infection in the urine. He is sitting in the chair next to the hospital bed. He is in no acute distress. White count was 10.4, hemoglobin 8.6, hematocrit 27.9, platelet count 296,000. Sodium 132, potassium 3.6, chloride 94, CO2 32, BUN 13, creatinine 0.67. Glucose is 225. Calcium 8. Magnesium 1.9. Objective - Vital Signs Vital signs: Vital Signs Temp 98.5 F 11/25/24 13:39 Pulse 97 11/25/24 13:39 Resp 16 11/25/24 13:39 BP 127/75 11/25/24 13:39 Pulse Ox 95 11/25/24 13:39 FiO2 Intake & Output 11/24/24 11/25/24 11/25/24 18:59 06:59 18:59 Intake Total 643 20 360 Output Total 1400 1175 Balance -757 -1155 360 Weight 81.9 kg Intake: IV 20 20 Invasive Line 2 20 20 Oral 623 360 Output: Urine 1000 1175 Stool 400 Other: Voiding Method Toilet Toilet Urinal Urinal - Exam No acute distress, oriented 3. The patient is currently on 2 L of oxygen. HEENT examination is grossly unremarkable. Mucous membranes are moist. No oral lesions. Neck supple. Full range of motion. No adenopathy thyromegaly or neck vein distention. Cardiovascular examination reveals regular rhythm rate. S1-S2 normal. No S3 or S4. No discernible murmur noted. Lungs reveal bilateral crackles, left greater than right. No wheezes. No rhonchi. Abdomen soft bowel sounds are heard. No masses or tenderness. Extremities are intact. No cyanosis or clubbing. Mild edema is noted. Skin is without rash or lesion. Neurologic examination is brief but nonfocal. - Labs CBC & Chem 7: 11/25/24 05:26 11/25/24 05:26 Labs: Abnormal Lab Results - Last 24 Hours (Table) 11/24/24 11/24/24 11/25/24 Range/Units 16:27 20:07 05:26 RBC 3.14 L (4.30-5.90) m/uL Hgb 8.6 L (13.0-17.5) gm/dL Hct 27.9 L (39.0-53.0) % MCHC 30.8 L (31.0-37.0) g/dL RDW 16.6 H (11.5-15.5) % Neutrophils # 8.4 H (1.3-7.7) k/uL Lymphocytes # 0.9 L (1.0-4.8) k/uL Sodium (137-145) mmol/L Chloride (98-107) mmol/L Carbon Dioxide (22-30) mmol/L Glucose (74-99) mg/dL POC Glucose (mg/dL) 287 H 209 H (70-110) mg/dL Calcium (8.4-10.2) mg/dL 11/25/24 11/25/24 11/25/24 Range/Units 05:26 06:04 11:41 RBC (4.30-5.90) m/uL Hgb (13.0-17.5) gm/dL Hct (39.0-53.0) % MCHC (31.0-37.0) g/dL RDW (11.5-15.5) % Neutrophils # (1.3-7.7) k/uL Lymphocytes # (1.0-4.8) k/uL Sodium 132 L (137-145) mmol/L Chloride 94 L (98-107) mmol/L Carbon Dioxide 32 H (22-30) mmol/L Glucose 175 H (74-99) mg/dL POC Glucose (mg/dL) 191 H 225 H (70-110) mg/dL Calcium 8.0 L (8.4-10.2) mg/dL Assessment and Plan Assessment: Acute non-ST segment elevation myocardial infarction. Moderate left pleural effusion, possibly chronic in nature. Glory glabrata UTI. History of coronary disease with a totally occluded RCA. Recent severe GI bleed requiring multiple blood transfusions mainly at [facility]. Recent IVC filter placed at [facility]. Chronic obstructive pulmonary disease on home oxygen. History of abdominal aortic aneurysm status post endovascular repair. Hypertension. Former smoker. Hyperlipidemia. Diabetes mellitus. General medical debility. Plan: Plan dated November 23, 2024. The patient is seen today in room 356. He continues on oxygen at 3 L. He is getting saline at 20 cc an hour. His examination is consistent with mild CHF. He has mild lower extremity edema. He has some mild bibasilar crackles. The patient continues on Lasix. No additional recommendations are made. Procalcitonin level was 0.09. Antibiotics will be discontinued. We will continue to follow make recommendations along the way. Prognosis is guarded. Plan dated November 24, 2023. The patient is seen today in room 356. The patient is currently on 3 L. He is sitting at the side of the bed. There is no respiratory distress or difficulty. The nurses in the room with him. Labs, x-rays, and all medications are reviewed. The patient states that he is feeling better. Chest ultrasound revealed a relatively small left pleural effusion pocket size of 5 cm. No need for thoracentesis at this time. We will continue to follow the patient, make recommendations along the way. Plan dated November 25, 2024. The patient is seen in room 356. He is down to 2 L of oxygen. The patient is currently on fluconazole for a Glory infection in the urine. Clinically, he looks very stable. The patient is sitting in a chair next to the hospital bed. There is no respiratory distress or difficulty. Labs, x-rays, and medications are reviewed. We will continue to follow make recommendations. We are initially consulted for pleural effusion and possible thoracentesis, but the pleural effusion is small. Time with Patient: Less than 30
--- NOTE | 2024-11-25 14:12 | P.PN ---
Subjective Progress Note Date: 11/25/24 Hospital course: Patient is a very pleasant 84-year-old male with a past medical history of AAA status post endovascular repair, hypertension, previous tobacco abuse and quit 30 years ago, hyperlipidemia, mild alcohol use, coronary artery disease including 30 to 40% LAD stenosis, 20% left main stenosis and 100% distal RCA stenosis with [id number] collaterals, type II diabetes mellitus, cirrhosis and COPD normally on 2 L continuous presented to the emergency department for chest pain and shortness of breath. Also been complaining of significant dysuria. Vitals on admission temperature 98, pulse rate 91, respiratory rate 22, blood pressure 117/66, O2 sat 97% on nasal cannula at 5 L/min. EKG revealed sinus tachycardia with occasional supraventricular premature complexes with a ventricular rate of 120 bpm, possible right ventricular hypertrophy, QTc i nterval of 398 ms, with ST-segment depression noted in leads V2-V4. CXR revealed bronchitis with pneumonitis and large left pleural effusion. Labs on admission WBC 16.2, hemoglobin 9.5, hematocrit 31.3, platelets 443, neutrophils 14.8, PT 10.4, PTT 18.5, INR 0.9, sodium 133, potassium 4.3, chloride 94, carbon dioxide 31, BUN 23, creatinine 0.8, glucose 398, magnesium 1.4, troponin 0.038, BNP 1620 . UA shows cloudy urine, negative for urine nitrites, large leukocyte esterase, few bacteria. Troponin peaked at 1.550. Patient was not heparinized. Likely type II NSTEMI. Urine cultures growing Glory glabrata. Started on IV fluconazole. Also concerned about possible COVID-pneumonia, on IV antibiotics. Pulmonology consulted. Patient also started on IV Lasix. Physical exam: Patient seen and fully evaluated at bedside this morning. Patient sitting up in chair at bedside reports slightly frustrated over weakness/fatigue. Physical therapy following and plans for discharge to SNF once stable. Patient also admits to urinary frequency and mild burning with urination. He does however report burning with urination has been improving over the past 2 days. Patient denies any other complaints other than urinary complaints as mentioned, feeling weak and just worn out. He denies any headache, lightheadedness, dizziness, chest pain, palpitations, shortness of breath, or experiencing any numbness/tingling/weakness in his extremities. Vital signs reviewed and stable. General: Nontoxic, no distress and chronically ill-appearing Derm: Skin warm and dry, normal coloration for ethnicity. Multiple upper extremity bilateral bruising/ecchymosis. Sacral decubitus ulcer. Head: Atraumatic, normocephalic and symmetric. Eyes: EOM's intact, no lid lag, and anicteric sclera Mouth: no lip lesions, mucus membranes moist Cardiovascular: regular rate and rhythm with normal S1S2, soft systolic murmur, positive posterior tibial pulses bilaterally, and cap refill < 2 seconds. Lungs: Respirations even, regular, and unlabored on supplemental oxygen. Lungs CTA bilaterally, no rhonchi, no rales, no wheezing, and no accessory muscle usage. Abdominal: soft, nontender to palpation, no guarding, no appreciable organomegaly Ext: ROM intact. No gross muscle atrophy, scant lower extremity edema, no contractures Neuro: Speech clear, face symmetrical and CN II-XII grossly intact with no noted focal neuro deficits Psych: Alert and oriented to person, place, time, and situation. Appropriate and pleasant affect. Assessment and Plan of Care: Acute on chronic hypoxic respiratory failure Left pleural effusion Interstitial opacities, likely acute pulmonary edema Type II NSTEMI History of CAD History of COPD on 2 L, not in exacerbation Former smoker -Cardiology following, continue aspirin 81 mg, atorvastatin 40 mg, Zetia 10 mg, metoprolol 25 daily -Pulmonology following, ultrasound left chest revealed moderate size left pleural effusion measuring 5 cm. Reviewed pulmonology's documentation in chart -Continue Lasix 40 mg twice daily -Continue DuoNebs 4 times daily scheduled and every 2 hours as needed for wheezing/shortness of breath. -Continue home Perforomist twice daily. Candidu glabrata UTI Sepsis on arrival secondary to above -Patient continued on IV fluconazole 200 mg daily (day 4) Type 2 diabetes -Continue Levemir 14 units daily, aspart 4 units ACHS, sliding scale insulin, monitor for hypoglycemia Hyponatremia -Improved with IV Lasix, patient transition to oral Lasix 40 mg twice daily. Hypomagnesemia - resolved. Magnesium 1.9. Hypokalemia -Resolved. Potassium 3.6 this morning. Left buttock decubitus ulcer, present on admission -Wound care following History of cirrhosis -Liver profile unremarkable. Hypertension -Vital signs currently stable. Continue to monitor vital signs continue daily medication regimen with metoprolol succinate 25 mg daily. Data and imaging reviewed: Morning labs reviewed. CBC showing stable normocytic anemia with hemoglobin of 8.6. BMP showing hyponatremia with sodium of 132, hypochloremia with chloride of 94, and hypercarbia with bicarb of 32. Blood glucose 175. Magnesium 1.9. Vital signs reviewed. Blood pressure 114/68, heart rate 88, respiratory rate 18, temp 97.9 F, and SpO2 of 98% on room air. CODE STATUS: Full code DVT prophylaxis: Lovenox Anticipated discharge date: Pending clinical course Anticipated discharge place: SNF Patient was seen independently by Nurse Pracitioner. This document was prepared using [employer] dictation software. Please allow for errors in radio message router, while rare they do occur. Parag Samayoa NP rendered care for this patient independently, reviewed the findings and plan as documented in the note above and agree with plan. I did not physically speak with or examine the patient on this date. Objective - Vital Signs Vital signs: Vital Signs Temp 97.9 F 11/25/24 03:35 Pulse 88 11/25/24 08:18 Resp 18 11/25/24 03:35 BP 114/68 11/25/24 03:35 Pulse Ox 98 11/25/24 03:35 FiO2 Intake & Output 11/24/24 11/25/24 11/25/24 18:59 06:59 18:59 Intake Total 643 20 Output Total 1400 1175 Balance -757 -1155 Weight 81.9 kg Intake: IV 20 20 Invasive Line 2 20 20 Oral 623 Output: Urine 1000 1175 Stool 400 Other: Voiding Method Toilet Toilet Urinal Urinal - Labs CBC & Chem 7: 11/25/24 05:26 11/25/24 05:26 Labs: Abnormal Lab Results - Last 24 Hours (Table) 11/24/24 11/24/24 11/24/24 Range/Units 11:42 16:27 20:07 RBC (4.30-5.90) m/uL Hgb (13.0-17.5) gm/dL Hct (39.0-53.0) % MCHC (31.0-37.0) g/dL RDW (11.5-15.5) % Neutrophils # (1.3-7.7) k/uL Lymphocytes # (1.0-4.8) k/uL Sodium (137-145) mmol/L Chloride (98-107) mmol/L Carbon Dioxide (22-30) mmol/L Glucose (74-99) mg/dL POC Glucose (mg/dL) 216 H 287 H 209 H (70-110) mg/dL Calcium (8.4-10.2) mg/dL 11/25/24 11/25/24 11/25/24 Range/Units 05:26 05:26 06:04 RBC 3.14 L (4.30-5.90) m/uL Hgb 8.6 L (13.0-17.5) gm/dL Hct 27.9 L (39.0-53.0) % MCHC 30.8 L (31.0-37.0) g/dL RDW 16.6 H (11.5-15.5) % Neutrophils # 8.4 H (1.3-7.7) k/uL Lymphocytes # 0.9 L (1.0-4.8) k/uL Sodium 132 L (137-145) mmol/L Chloride 94 L (98-107) mmol/L Carbon Dioxide 32 H (22-30) mmol/L Glucose 175 H (74-99) mg/dL POC Glucose (mg/dL) 191 H (70-110) mg/dL Calcium 8.0 L (8.4-10.2) mg/dL
--- NOTE | 2024-11-25 14:14 | P.PN ---
Subjective Progress Note Date: 11/25/24 This is a pleasant 84-year-old male patient followed in the past with Dr. Phoenix but most recently has been following with Dr. Ortiz with past medical history of AAA status post endovascular repair, hypertension, prior tobacco abuse quit 30 years ago, hyperlipidemia, CAD, diabetes type 2, COPD. Over the past 2 months has been hospitalized for pleural effusion and required thoracentesis done at [facility]. Also history of recent severe GI bleed with severe anemia requiring transfusion. According to the patient he also underwent placement of a filter by Dr. Francis done recently at [facility]. he has been at [facility] for rehab. Presented to the emergency department with complaints of shortness of breath and sudden onset chest discomfort after getting up off the toilet. At the time my examination patient is resting comfortably in the ER. Denies any current complaints of chest discomfort. Diagnostics -EKG: Sinus tachycardia with right bundle branch block -Chest x-ray: Sinus with pneumonitis and large left pleural effusion -Laboratory studies: Blood cell count 16.2, hemoglobin 9.5, sodium 133, BUN 23, creatinine 0.8, NT proBNP 1620. Troponin 0.038, 1.29 and third pending -Home cardiac medications: Metoprolol succinate 25 mg p.o. daily, Lasix 40 mg p.o. daily, ezetimibe 10 mg p.o. nightly and aspirin 81 mg p.o. daily -Prior stress test: November 2022 inferior ischemia -Echocardiogram: January 2023 EF 50% -Cardiac catheterization: November 2022 30 to 40% LAD stenosis, 20% left main stenosis and 100% distal RCA stenosis with abmb-ox-yaeel collaterals 11/22/2024 Patient was seen and examined sitting up in bed eating breakfast. He overall has no chest discomfort or shortness of breath. He complains of diffuse joint and muscle aches related to the stretcher he is sleeping on. Echocardiogram with Doppler study showed EF of 50-55% with inferobasal and mid basal hypokinesis, mild MVP and mild MR. Records from [facility] reviewed. It appears patient was admitted there for evaluation of pleural effusion felt to be chronic and loculated and no intervention was done. 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 He was anticoagulated on warfarin upon discharge from [facility] and was readmitted to [facility] with a hemoglobin 5.6, requiring transfusion. Following that anticoagulation was discontinued and he had a filter placed by Dr. Francis. 11/23/2024 Hb 8.8, creatinine 0.7, heart rate 106 bpm, BP 133/89 11/24/24 Patient seen and examined. Patient states that his breathing is better today. He denies having any chest pain, palpitations or dizziness. He is currently on IV Lasix which we will plan to transition to oral. Blood pressure 106/69, heart rate 87-108, pulse ox 94% on 2 L nasal cannula. Repeat blood work reveals WBC 11.2, hemoglobin 8.6, sodium 134, potassium 3.4, BUN 13 creatinine 0.73. Pot assium has been replaced. 11/25/24 Patient seen and examined. He denies having any chest pain or shortness of breath. Yesterday, IV Lasix was transitioned to oral. Blood pressure 127/75, heart rate 97, pulse ox 95% on 2 L nasal cannula. Repeat blood work reveals hemoglobin 8.6. Creatinine 0.67, potassium 3.6. PHYSICAL EXAMINATION: This is a 84-year-old gentleman in no apparent distress. VITAL SIGNS: Reviewed. HEENT: Head is atraumatic, normocephalic. Pupils are equal, round. Sclerae anict marilou. Conjunctivae are clear. Mucous membranes of the mouth are moist. Neck is supple. There is no elevated jugular venous pressure. No carotid bruit is heard. CHEST EXAMINATION: Clear to auscultation bilaterally. No wheezes rales or rhonchi. Respirations even and nonlabored. HEART EXAMINATION: Heart regular, positive S1 and S2. No S3. No S4. Soft systolic murmur. ABDOMEN: Soft, nontender. Bowel sounds are heard. No organomegaly noted. EXTREMITIES: 2+ peripheral pulses with evidence of trace peripheral edema and no calf tenderness noted. NEUROLOGIC EXAMINATION: Patient is awake, alert and oriented x3. Assessment: 1. NSTEMI 2. CAD with known total occluded RCA 3. Recent severe GI bleed requiring transfusions 4. Pleural effusion, chronic, loculated 5. Recent filter insertion Plan: From cardiology's perspective continue aspirin, atorvastatin, ezetimibe and metoprolol. Continue Lasix oral 40 mg twice daily Patient is cleared for discharge from cardiology May follow-up in the office with his primary backfiller in 1 week. Nurse practitioner note has been reviewed, I agree with documented findings and plan of care. Patient was seen and examined. Objective - Vital Signs Vital signs: Vital Signs Temp 97.9 F 11/25/24 03:35 Pulse 88 11/25/24 08:18 Resp 18 11/25/24 03:35 BP 114/68 11/25/24 03:35 Pulse Ox 98 11/25/24 03:35 FiO2 Intake & Output 11/24/24 11/25/24 11/25/24 18:59 06:59 18:59 Intake Total 643 20 Output Total 1400 1175 Balance -757 -1155 Weight 81.9 kg Intake: IV 20 20 Invasive Line 2 20 20 Oral 623 Output: Urine 1000 1175 Stool 400 Other: Voiding Method Toilet Toilet Urinal Urinal - Labs CBC & Chem 7: 11/25/24 05:26 11/25/24 05:26 Labs: Abnormal Lab Results - Last 24 Hours (Table) 11/24/24 11/24/24 11/24/24 Range/Units 11:42 16:27 20:07 RBC (4.30-5.90) m/uL Hgb (13.0-17.5) gm/dL Hct (39.0-53.0) % MCHC (31.0-37.0) g/dL RDW (11.5-15.5) % Neutrophils # (1.3-7.7) k/uL Lymphocytes # (1.0-4.8) k/uL Sodium (137-145) mmol/L Chloride (98-107) mmol/L Carbon Dioxide (22-30) mmol/L Glucose (74-99) mg/dL POC Glucose (mg/dL) 216 H 287 H 209 H (70-110) mg/dL Calcium (8.4-10.2) mg/dL 11/25/24 11/25/24 11/25/24 Range/Units 05:26 05:26 06:04 RBC 3.14 L (4.30-5.90) m/uL Hgb 8.6 L (13.0-17.5) gm/dL Hct 27.9 L (39.0-53.0) % MCHC 30.8 L (31.0-37.0) g/dL RDW 16.6 H (11.5-15.5) % Neutrophils # 8.4 H (1.3-7.7) k/uL Lymphocytes # 0.9 L (1.0-4.8) k/uL Sodium 132 L (137-145) mmol/L Chloride 94 L (98-107) mmol/L Carbon Dioxide 32 H (22-30) mmol/L Glucose 175 H (74-99) mg/dL POC Glucose (mg/dL) 191 H (70-110) mg/dL Calcium 8.0 L (8.4-10.2) mg/dL
[2024-11-25 16:47] LABS: Glucose,Whole Blood 282 mg/dL (70-110)
[2024-11-25] MEDS: ZINC OXIDE PASTE (Z-GUARD) 1 APPLIC TOPICAL SCH (16:52)
[2024-11-25] MEDS: polyethylene glycoL 3350 17 GM POWD.PACK PO STA (16:52)
[2024-11-25 19:59] LABS: Glucose,Whole Blood 200 mg/dL (70-110)
[2024-11-26 05:41] LABS: Glucose,Whole Blood 154 mg/dL (70-110)
[2024-11-26 07:25] LABS: Anisocytosis Slight; HCT 29.1 % (39.0-53.0); HGB 9.1 gm/dL (13.0-17.5); Hypochromasia Marked; MCH 27.6 pg (25.0-35.0); MCHC 31.1 g/dL (31.0-37.0); MCV 88.8 fL (80.0-100.0); Mean Platelet Volume 6.9; Platelet Count 300 k/uL (150-450); Poikilocytosis Slight; RBC 3.28 m/uL (4.30-5.90); RDW 16.6 % (11.5-15.5); WBC 11.6 k/uL (3.8-10.6)
[2024-11-26 07:44] LABS: ALT 18 U/L (4-49); AST 27 U/L (17-59); African American GFR (CKD) >90 (>60 ml/min/1.73 sqM); Albumin 2.7 g/dL (3.5-5.0); Alkaline Phosphatase 89 U/L (38-126); Anion Gap 5 mmol/L; Blood Urea Nitrogen 13 mg/dL (9-20); Calcium 8.1 mg/dL (8.4-10.2); Carbon Dioxide 33 mmol/L (22-30); Chloride 96 mmol/L (98-107); Glucose 139 mg/dL (74-99); Magnesium 1.5 mg/dL (1.6-2.3); Non-African American GFR(CKD) 90 (>60 ml/min/1.73 sqM); Potassium 3.7 mmol/L (3.5-5.1); Sodium 134 mmol/L (137-145); Total Bilirubin 0.5 mg/dL (0.2-1.3); Total Protein 5.2 g/dL (6.3-8.2)
[2024-11-26 08:05] VITALS: RESP 18; TEMP 98
[2024-11-26] MEDS: polyethylene glycoL 3350 17 GM POWD.PACK PO SCH (08:34)
[2024-11-26] MEDS ORDERED: ACETAMINOPHEN TAB 325 MG TAB PO PRN (11:05)
[2024-11-26 11:38] LABS: Glucose,Whole Blood 226 mg/dL (70-110)
[2024-11-26] MEDS: LACTULOSE 20 GM/30 ML CUP PO ONE (11:51)
--- NOTE | 2024-11-26 12:27 | P.PN ---
Subjective Progress Note Date: 11/26/24 Principal diagnosis: Congestive heart failure. This is an 84-year-old male patient with a known history of diabetes mellitus, hypertension, hyperlipidemia, cirrhosis, former smoker, recent severe GI bleeding requiring multiple transfusions, recent IVC filter placed, most of his care has been at [facility] and at [facility]. He has been in inpatient rehabilitation at [facility]. He presented here to the emergency room on 11/20/2024 with complaints of chest pain. Troponin 0.038, 1.150, 0.550. X-ray revealed a large the same. He is seen in the emergency department. Currently sitting up on the stretcher. Awake and alert in no acute distress. Maintaining O2 saturations in the 90s on 3 L/min per nasal cannula. He does have home oxygen as well. ReSound of the chest revealed a 5 cm pleural effusion. White count 12.6. Hemoglobin 8.6. Platelets 364. Sodium 136. Potassium 3.7. Bicarb 37. BUN 16. Creatinine 0.62. Glucose 127. Urinalysis with high WBCs and few bacteria. Progress note dated November 23, 2024. 84-year-old male seen yesterday in consultation. He has a history of diabetes, hypertension, hyperlipidemia, cirrhosis, and previous tobacco use, among other things. The patient was admitted with a diagnosis of probable CHF. When he came to the emergency department, on November 20, he was complaining of shortness of breath, and chest pain. Currently, the patient is resting comfortably in room 356. He is on saline at 20 cc an hour. He is getting nasal O2 at 3 L. White count 13.3, hemoglobin 8.8, hematocrit 29.1, platelet count 368,000. Sodium 132, potassium 3.7, chlorides 91, CO2 36, BUN 14, creatinine 0.75. Calcium 8.7. Glucose is 327. Ultrasound shows a left-sided pleural effusion, to have a 5 cm pocket. Progress note dated November 24, 2024. 84-year-old male seen in consultation 2 days ago. The patient was admitted with a diagnosis of CHF. The patient has a history of diabetes, hypertension, hyperlipidemia, and cirrhosis among other things. Currently, the patient is resting comfortably in bed. He is not receiving any IV fluids. He continues on nasal O2 at 3 L. Saturations are 97%. Procalcitonin level was normal at 0.09. White count 11.2, hemoglobin 8.6, hematocrit 28.1, platelet count 01/29/2000. Sodium 134, potassium 3.4, chlorides 94, CO2 36, BUN 13, creatinine 0.73. Glucose is 216. Calcium 8.1. Magnesium 1.3. Progress note dated November 25, 2024. 84-year-old male seen in consultation 3 days ago. The patient was diagnosed and admitted with CHF. The patient has a history of diabetes, hypertension, and hyperlipidemia, among other things. Currently, he is seen in room 356. He is on 2 L of oxygen. He is getting saline at 20 cc an hour. The patient is getting fluconazole for a Glory infection in the urine. He is sitting in the chair next to the hospital bed. He is in no acute distress. White count was 10.4, hemoglobin 8.6, hematocrit 27.9, platelet count 296,000. Sodium 132, potassium 3.6, chloride 94, CO2 32, BUN 13, creatinine 0.67. Glucose is 225. Calcium 8. Magnesium 1.9. Progress note dated November 26, 2024. The patient is seen today in room 356. He is resting comfortably in bed. He is awake and alert. He is getting saline 20 cc an hour. He is getting nasal O2 at 2 L. The patient states that he is feeling fine. Current labs include white c ount 11.6, hemoglobin 9.1, hematocrit 29.1, and a platelet count of 300,000. Sodium 134, potassium 3.7, chloride 96, CO2 33, BUN 13, and creatinine 0.67. Glucose is 226. Calcium 8.1 magnesium 1.5 and albumin 2.7. The patient's urine was positive for Glory glabrata. No recent chest x-ray to report. Objective - Vital Signs Vital signs: Vital Signs Temp 98.0 F 11/26/24 08:00 Pulse 104 H 11/26/24 08:51 Resp 18 11/26/24 08:00 BP 112/70 11/26/24 08:00 Pulse Ox 95 11/26/24 08:00 FiO2 Intake & Output 11/25/24 11/26/24 11/26/24 18:59 06:59 18:59 Intake Total 360 30 130 Output Total 650 400 Balance -290 -370 130 Weight 83 kg Intake: IV 30 10 Invasive Line 1 10 10 Invasive Line 2 20 Oral 360 120 Output: Urine 650 400 Other: Voiding Method Toilet Urinal # Bowel Movements 0 - Exam No acute distress, oriented 3. The patient is currently on 2 L of oxygen. HEENT examination is grossly unremarkable. Mucous membranes are moist. No oral lesions. Neck supple. Full range of motion. No adenopathy thyromegaly or neck vein distention. Cardiovascular examination reveals regular rhythm rate. S1-S2 normal. No S3 or S4. No discernible murmur noted. Lungs reveal bilateral crackles, left greater than right. No wheezes. No rhonchi. Abdomen soft bowel sounds are heard. No masses or tenderness. Extremities are intact. No cyanosis or clubbing. Mild edema is noted. Skin reveals multiple areas of ecchymoses, particularly in the bilateral upper extremities. Neurologic examination is brief but nonfocal. - Labs CBC & Chem 7: 11/26/24 07:14 11/26/24 07:14 Labs: Abnormal Lab Results - Last 24 Hours (Table) 11/25/24 11/25/24 11/26/24 Range/Units 16:46 19:58 05:40 WBC (3.8-10.6) k/uL RBC (4.30-5.90) m/uL Hgb (13.0-17.5) gm/dL Hct (39.0-53.0) % RDW (11.5-15.5) % Sodium (137-145) mmol/L Chloride (98-107) mmol/L Carbon Dioxide (22-30) mmol/L Glucose (74-99) mg/dL POC Glucose (mg/dL) 282 H 200 H 154 H (70-110) mg/dL Calcium (8.4-10.2) mg/dL Magnesium (1.6-2.3) mg/dL Total Protein (6.3-8.2) g/dL Albumin (3.5-5.0) g/dL 11/26/24 11/26/24 11/26/24 Range/Units 07:14 07:14 11:36 WBC 11.6 H (3.8-10.6) k/uL RBC 3.28 L (4.30-5.90) m/uL Hgb 9.1 L (13.0-17.5) gm/dL Hct 29.1 L (39.0-53.0) % RDW 16.6 H (11.5-15.5) % Sodium 134 L (137-145) mmol/L Chloride 96 L (98-107) mmol/L Carbon Dioxide 33 H (22-30) mmol/L Glucose 139 H (74-99) mg/dL POC Glucose (mg/dL) 226 H (70-110) mg/dL Calcium 8.1 L (8.4-10.2) mg/dL Magnesium 1.5 L (1.6-2.3) mg/dL Total Protein 5.2 L (6.3-8.2) g/dL Albumin 2.7 L (3.5-5.0) g/dL Assessment and Plan Assessment: Acute non-ST segment elevation myocardial infarction. Moderate left pleural effusion, possibly chronic in nature. Glory glabrata UTI. History of coronary disease with a totally occluded RCA. Recent severe GI bleed requiring multiple blood transfusions mainly at [facility]. Recent IVC filter placed at [facility]. Chronic obstructive pulmonary disease on home oxygen. History of abdominal aortic aneurysm status post endovascular repair. Hypertension. Former smoker. Hyperlipidemia. Diabetes mellitus. General medical debility. Plan: Plan dated November 23, 2024. The patient is seen today in room 356. He continues on oxygen at 3 L. He is getting saline at 20 cc an hour. His examination is consistent with mild CHF. He has mild lower extremity edema. He has some mild bibasilar crackles. The patient continues on Lasix. No additional recommendations are made. Procalcitonin level was 0.09. Antibiotics will be discontinued. We will continue to follow make recommendations along the way. Prognosis is guarded. Plan dated November 24, 2023. The patient is seen today in room 356. The patient is currently on 3 L. He is sitting at the side of the bed. There is no respiratory distress or difficulty. The nurses in the room with him. Labs, x-rays, and all medications are review ed. The patient states that he is feeling better. Chest ultrasound revealed a relatively small left pleural effusion pocket size of 5 cm. No need for thoracentesis at this time. We will continue to follow the patient, make recommendations along the way. Plan dated November 25, 2024. The patient is seen in room 356. He is down to 2 L of oxygen. The patient is currently on fluconazole for a Glory infection in the urine. Clinically, he looks very stable. The patient is sitting in a chair next to the hospital bed. There is no respiratory distress or difficulty. Labs, x-rays, and medications are reviewed. We will continue to follow make recommendations. We are initially consulted for pleural effusion and possible thoracentesis, but the pleural effusion is small. Plan dated November 26, 2024. The patient is seen again in room 356. He has been weaned down to 2 L of oxygen. He is receiving saline at 20 cc an hour. Labs, x-rays, and all medications are reviewed. The patient is doing well, without specific complaints. He is laying flat in bed. He denies any respiratory difficulty or distress. There is no audible wheezing. There is no conversational dyspnea or use of accessory muscles. We will continue to follow patient, make recommendations. Time with Patient: Less than 30
[2024-11-26 13:15] VITALS: BP 113/69; PULSE 92
--- NOTE | 2024-11-26 13:32 | P.PN ---
Subjective HISTORY OF PRESENT ILLNESS: This is a pleasant 84-year-old male patient followed in the past with Dr. Phoenix but most recently has been following with Dr. Ortiz with past medical history of AAA status post endovascular repair, hypertension, prior tobacco abuse quit 30 years ago, hyperlipidemia, CAD, diabetes type 2, COPD. Over the past 2 months has been hospitalized for pleural effusion and required thoracentesis done at [facility]. Also history of recent severe GI bleed with severe anemia requiring transfusion. According to the patient he also underwent placement of a filter by Dr. Francis done recently at [facility]. he has been at [facility] for rehab. Presented to the emergency department with complaints of shortness of breath and sudden onset chest discomfort after getting up off the toilet. At the time my examination patient is resting comfortably in the ER. Denies any current complaints of chest discom fort. Diagnostics -EKG: Sinus tachycardia with right bundle branch block -Chest x-ray: Sinus with pneumonitis and large left pleural effusion -Laboratory studies: Blood cell count 16.2, hemoglobin 9.5, sodium 133, BUN 23, creatinine 0.8, NT proBNP 1620. Troponin 0.038, 1.29 and third pending -Home cardiac medications: Metoprolol succinate 25 mg p.o. daily, Lasix 40 mg p.o. daily, ezetimibe 10 mg p.o. nightly and aspirin 81 mg p.o. daily -Prior stress test: November 2022 inferior ischemia -Echocardiogram: January 2023 EF 50% -Cardiac catheterization: November 2022 30 to 40% LAD stenosis, 20% left main stenosis and 100% distal RCA stenosis with [id number] collaterals 11/22/2024 Patient was seen and examined sitting up in bed eating breakfast. He overall has no chest discomfort or shortness of breath. He complains of diffuse joint and muscle aches related to the stretcher he is sleeping on. Echocardiogram with Doppler study showed EF of 50-55% with inferobasal and mid basal hypokin esis, mild MVP and mild MR. Records from [facility] reviewed. It appears patient was admitted there for evaluation of pleural effusion felt to be chronic and loculated and no intervention was done. 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 He was anticoagulated on warfarin upon discharge from [facility] and was readmitted to [facility] with a hemoglobin 5.6, requiring transfusion. Following that anticoagulation was discontinued and he had a filter placed by Dr. Francis. 11/23/2024 Hb 8.8, creatinine 0.7, heart rate 106 bpm, BP 133/89 11/24/24 Patient seen and examined. Patient states that his breathing is better today. He denies having any chest pain, palpitations or dizziness. He is currently on IV Lasix which we will plan to transition to oral. Blood pressure 106/69, heart rate 87-108, pulse ox 94% on 2 L nasal cannula. Repeat blood work reveals WBC 11.2, hemoglobin 8.6, sodium 134, potassium 3.4, BUN 13 creatinine 0.73. Potassium has been replaced. 11/25/24 Patient seen and examined. He denies having any chest pain or shortness of br eath. Yesterday, IV Lasix was transitioned to oral. Blood pressure 127/75, heart rate 97, pulse ox 95% on 2 L nasal cannula. Repeat blood work reveals hemoglobin 8.6. Creatinine 0.67, potassium 3.6. 11/26/2024 Patient examined this morning at the bedside. Patient currently denies chest pain or pressure. He denies shortness of breath. Vital signs are stable. He remains on oral diuretics. Discharge planning is underway for discharge to ECF. PHYSICAL EXAM: VITAL SIGNS: Reviewed. GENERAL: Well-developed in no acute distress. NECK: Supple. No JVD or thyromegaly LUNGS: Respirations even and unlabored. Lungs essentially clear to auscultation bilaterally. HEART: Regular rate and rhythm. S1 and S2 heard. EXTREMITIES: Normal range of motion. No clubbing or cyanosis. Peripheral pulses intact. No lower extremity edema ASSESSMENT: 1. NSTEMI 2. CAD with known total occluded RCA 3. Recent severe GI bleed requiring transfusions 4. Pleural effusion, chronic, loculated 5. Recent filter insertion 6. Urinary tract infection PLAN: Continue current cardiac medications Patient is currently stable from a cardiac standpoint Discharge planning underway for discharge to ECF either this or Thursday We will follow on an as-needed basis. Please reconsult if needed. Nurse practitioner note has been reviewed by physician. Signing provider agrees with the documented findings, assessment, and plan of care documented by KEELER POLYGRAPH OPERATOR as a scribe. Objective - Vital Signs Vital signs: Vital Signs Temp 98.0 F 11/26/24 08:00 Pulse 92 11/26/24 12:00 Resp 18 11/26/24 12:00 BP 113/69 11/26/24 12:00 Pulse Ox 96 11/26/24 12:00 FiO2 Intake & Output 11/25/24 11/26/24 11/26/24 18:59 06:59 18:59 Intake Total 360 30 130 Output Total 650 400 900 Balance -290 -370 -770 Weight 83 kg Intake: IV 30 10 Invasive Line 1 10 10 Invasive Line 2 20 Oral 360 120 Output: Urine 650 400 500 Stool 400 Other: Voiding Method Toilet Toilet Urinal Urinal # Bowel Movements 0 - Labs CBC & Chem 7: 11/26/24 07:14 11/26/24 07:14 Labs: Abnormal Lab Results - Last 24 Hours (Table) 11/25/24 11/25/24 11/26/24 Range/Units 16:46 19:58 05:40 WBC (3.8-10.6) k/uL RBC (4.30-5.90) m/uL Hgb (13.0-17.5) gm/dL Hct (39.0-53.0) % RDW (11.5-15.5) % Sodium (137-145) mmol/L Chloride (98-107) mmol/L Carbon Dioxide (22-30) mmol/L Glucose (74-99) mg/dL POC Glucose (mg/dL) 282 H 200 H 154 H (70-110) mg/dL Calcium (8.4-10.2) mg/dL Magnesium (1.6-2.3) mg/dL Total Protein (6.3-8.2) g/dL Albumin (3.5-5.0) g/dL 11/26/24 11/26/24 11/26/24 Range/Units 07:14 07:14 11:36 WBC 11.6 H (3.8-10.6) k/uL RBC 3.28 L (4.30-5.90) m/uL Hgb 9.1 L (13.0-17.5) gm/dL Hct 29.1 L (39.0-53.0) % RDW 16.6 H (11.5-15.5) % Sodium 134 L (137-145) mmol/L Chloride 96 L (98-107) mmol/L Carbon Dioxide 33 H (22-30) mmol/L Glucose 139 H (74-99) mg/dL POC Glucose (mg/dL) 226 H (70-110) mg/dL Calcium 8.1 L (8.4-10.2) mg/dL Magnesium 1.5 L (1.6-2.3) mg/dL Total Protein 5.2 L (6.3-8.2) g/dL Albumin 2.7 L (3.5-5.0) g/dL
--- NOTE | 2024-11-26 14:13 | P.DS ---
Providers Date of admission: 11/21/24 02:19 Expected date of discharge: 11/26/24 Attending physician: Bj Ortiz MD Consults: 11/22/24 12:08 Consult Physician Routine Consulting Provider: Sherif Alston Consult Reason/Comments: left large pleural effusion Do you want consulting provider notified?: Yes Primary care physician: [facility] Course: Discharge Diagnosis: Acute on chronic hypoxic respiratory failure Left pleural effusion with Interstitial opacities, likely acute pulmonary edema. Patient received IV diuresis and transition to oral Lasix 40 mg twice daily. Manager Training And Development evaluated stating likely chronic effusion. Patient cleared from pulmonology perspective for discharge and to follow-up outpatient in their office in 1 week. Type II NSTEMI. Cardiology evaluated and clearing patient for discharge from cardiac perspective. Patient to continue aspirin 81 mg, atorvastatin 40 mg, Zetia 10 mg, metoprolol 25 daily, and Lasix 40 mg twice daily. History of CAD History of COPD on 2 L, not in acute exacerbation. Continue DuoNebs 4 times daily scheduled and every 6 hours as needed for wheezing/shortness of breath. Continue home Perforomist twice daily. Former smoker Glory glabrata UTI. Patient received 5-day course of IV fluconazole and being discharged home on an additional 9-day course of fluconazole 200 mg daily to total a treatment course of 14 days. Patient to follow-up outpatient with urology in 2 weeks. Sepsis on arrival secondary to above Type 2 diabetes. Continue Levemir 14 units daily, aspart 4 units ACHS, and sliding scale insulin, monitor for hypoglycemia Hyponatremia. Improved with this. Sodium on day of discharge 134. Hypomagnesemia. Replaced. Hypokalemia. Resolved. Potassium on discharge 3.7. Left buttock decubitus ulcer, present on admission. Continue offloading and local wound care. History of cirrhosis. Liver profile unremarkable. Hypertension Continue to monitor vital signs continue daily medication regimen with metoprolol succinate 25 mg daily. Hospital course: Patient is a very pleasant 84-year-old male with a past medical history of AAA status post endovascular repair, hypertension, previous tobacco abuse and quit 30 years ago, hyperlipidemia, mild alcohol use, coronary artery disease including 30 to 40% LAD stenosis, 20% left main stenosis and 100% distal RCA stenosis with [id number] collaterals, type II diabetes mellitus, cirrhosis and COPD normally on 2 L continuous presented to the emergency department for chest pain and shortness of breath. Also been complaining of significant dysuria. Vitals on admission temperature 98, pulse rate 91, respiratory rate 22, blood pressure 117/66, O2 sat 97% on nasal cannula at 5 L/min. EKG revealed sinus tachycardia with occasional supraventricular premature complexes with a ventricular rate of 120 bpm, possible right ventricular hypertrophy, QTc interval of 398 ms, with ST-segment depression noted in leads V2-V4. CXR revealed bronchitis with pneumonitis and large left pleural effusion. Labs on admission WBC 16.2, hemoglobin 9.5, hematocrit 31.3, platelets 443, neutrophils 14.8, PT 10.4, PTT 18.5, INR 0.9, sodium 133, potassium 4.3, chloride 94, carbon dioxide 31, BUN 23, creatinine 0.8, glucose 398, magnesium 1.4, troponin 0.038, BNP 1620. UA shows cloudy urine, negative for urine nitrites, large leukocyte esterase, few bacteria. Troponin peaked at 1.550. Patient was not heparinized. Likely type II NSTEMI. Urine cultures growing Glory glabrata. Started on IV fluconazole. Also concerned about possible COVID-pneumonia, on IV antibiotics. Pulmonology consulted. Patient received IV diuresis and transition to oral Lasix 40 mg twice daily. Manager Training And Development evaluated stating likely chronic effusion. Patient cleared from pulmonology perspective for discharge and to follow-up outpatient in their office in 1 week. Cardiology evaluated and clearing patient for discharge from cardiac perspective. Patient to continue aspirin 81 mg, atorvastatin 40 mg, Zetia 10 mg, metoprolol 25 daily, and Lasix 40 mg twice daily. Patient received 5-day course of IV fluconazole and being discharged home on an additional 9-day course of fluconazole 200 mg daily to total a treatment course of 14 days for Glory glabrata UTI. Patient to follow-up outpatient with urology in 2 weeks. Patient evaluated by physical therapy recommended SNF placement. He has been accepted to [facility] for rehab. Authorization approved and patient medically optimized for discharge at this time. Patient to follow- up outpatient with PCP in 1 to 2 days, cable splicing technician in 1 week, printing bindery assistant in 1 week, and urologist in 2 weeks. Physical exam: Vital signs reviewed and stable. General: Nontoxic, no distress and chronically ill-appearing Derm: Skin warm and dry, normal coloration for ethnicity. Multiple upper extremity bilateral bruising/ecchymosis. Sacral decubitus ulcer. Head: Atraumatic, normocephalic and symmetric. Eyes: EOM's intact, no lid lag, and anicteric sclera Mouth: no lip lesions, mucus membranes moist Cardiovascular: regular rate and rhythm with normal S1S2, soft systolic murmur, positive posterior tibial pulses bilaterally, and cap refill < 2 seconds. Lungs: Respirations even, regular, and unlabored on supplemental oxygen. Lungs CTA bilaterally, no rhonchi, no rales, no wheezing, and no accessory muscle usage. Abdominal: soft, nontender to palpation, no guarding, no appreciable organomegaly Ext: ROM intact. No gross muscle atrophy, scant lower extremity edema, no contractures Neuro: Speech clear, face symmetrical and CN II-XII grossly intact with no noted focal neuro deficits Psych: Alert and oriented to person, place, time, and situation. Appropriate and pleasant affect. A total of 37 minutes of time were spent preparing this complex discharge summary. Pt was discharged on 11/26/24 at 2:06 PM. Patient was seen independently by Nurse Practitioner. This document was prepared using [employer] dictation software. Please allow for errors in manager stone while rare they do occur. Parag Samayoa NP rendered care for this patient independently, reviewed the findings and plan as documented in the note above. I did not physically speak with or examine the patient on this date. Patient Condition at Discharge: Stable Plan - Discharge Summary Discharge Rx Participant: No New Discharge Prescriptions: New Ipratropium-Albuterol Nebulize [Duoneb 0.5 mg-3 mg/3 ml Soln] 3 ml INHALATION RT-QID each INSULIN ASPART (NovoLOG) [NovoLOG (formulary)] 0 unit SQ ACHS each Fluconazole 200 mg PO DAILY 9 Days #9 tab Furosemide [Lasix] 40 mg PO BID@0900,1600 tab Atorvastatin [Lipitor] 40 mg PO DAILY tab Continue Multivitamins, Thera [Multivitamin (formulary)] 1 tab PO DAILY Triamcinolone 0.1% Cream [Kenalog 0.1% Cream] 1 applic TOPICAL BID Sodium Chloride [Saline Mist] 1 spray EA NOSTRIL Q2H PRN PRN Reason: Congestion Simethicone Chew [Mylicon Chew] 80 mg PO QID PRN PRN Reason: gas Ipratropium-Albuterol Nebulize [Duoneb 0.5 mg-3 mg/3 ml Soln] 3 ml INHALATION RT-Q6H Salmeterol 50 mcg [Serevent Diskus] 1 puff INHALATION RT-Q12H polyethylene glycoL 3350 [Miralax] 17 gm PO DAILY Omeprazole [PriLOSEC] 20 mg PO DAILY Ezetimibe [Zetia] 10 mg PO HS Aspirin 81 mg PO DAILY Ascorbic Acid [Vitamin C] 500 mg PO DAILY Z-Guard 1 applic TOPICAL HS Acetaminophen Tab [Tylenol] 1,000 mg PO Q6H PRN PRN Reason: Pain guaiFENesin [guaiFENesin Oral Solution] 200 mg PO QID PRN PRN Reason: cough or congestion Benzonatate [Tessalon Perles] 100 mg PO TID PRN PRN Reason: Cough methocarbamoL [Robaxin] 500 mg PO TID INSULIN LISPRO (HumaLOG) [humaLOG] 4 units SQ ACHS Sennosides/Docusate Sodium [Senna Plus 8.6-50 mg Tablet] 2 tab PO DAILY predniSONE See Taper PO DAILY Metoprolol Succinate (ER) [Toprol XL] 25 mg PO DAILY Lidocaine 5% Patch [Lidoderm 5% Patch] 1 patch TOPICAL DAILY Insulin Glargine [Lantus Vial] 14 unit SQ DAILY@0600 Ferrous Sulfate [Iron (65 MG Elemental)] 325 mg PO DAILY Discontinued Furosemide [Lasix] 40 mg PO DAILY INSULIN LISPRO (HumaLOG) [humaLOG] See Protocol SQ ACHS Amoxic-Pot Clav 875-125Mg [Augmentin 875-125] 1 tab PO BID Discharge Medication List Acetaminophen Tab [Tylenol] 1,000 mg PO Q6H PRN 12/18/22 [History] Multivitamins, Thera [Multivitamin (formulary)] 1 tab PO DAILY 12/18/22 [History] Ascorbic Acid [Vitamin C] 500 mg PO DAILY 11/21/24 [History] Aspirin 81 mg PO DAILY 11/21/24 [History] Benzonatate [Tessalon Perles] 100 mg PO TID PRN 11/21/24 [History] Ezetimibe [Zetia] 10 mg PO HS 11/21/24 [History] Ferrous Sulfate [Iron (65 MG Elemental)] 325 mg PO DAILY 11/21/24 [History] INSULIN LISPRO (HumaLOG) [humaLOG] 4 units SQ ACHS 11/21/24 [History] Insulin Glargine [Lantus Vial] 14 unit SQ DAILY@0600 11/21/24 [History] Ipratropium-Albuterol Nebulize [Duoneb 0.5 mg-3 mg/3 ml Soln] 3 ml INHALATION RT-Q6H 11/21/24 [History] Lidocaine 5% Patch [Lidoderm 5% Patch] 1 patch TOPICAL DAILY 11/21/24 [History] Metoprolol Succinate (ER) [Toprol XL] 25 mg PO DAILY 11/21/24 [History] Omeprazole [PriLOSEC] 20 mg PO DAILY 11/21/24 [History] Salmeterol 50 mcg [Serevent Diskus] 1 puff INHALATION RT-Q12H 11/21/24 [History] Sennosides/Docusate Sodium [Senna Plus 8.6-50 mg Tablet] 2 tab PO DAILY 11/21/24 [History] Simethicone Chew [Mylicon Chew] 80 mg PO QID PRN 11/21/24 [History] Sodium Chloride [Saline Mist] 1 spray EA NOSTRIL Q2H PRN 11/21/24 [History] Triamcinolone 0.1% Cream [Kenalog 0.1% Cream] 1 applic TOPICAL BID 11/21/24 [History] Z-Guard 1 applic TOPICAL HS 11/21/24 [History] guaiFENesin [guaiFENesin Oral Solution] 200 mg PO QID PRN 11/21/24 [History] methocarbamoL [Robaxin] 500 mg PO TID 11/21/24 [History] polyethylene glycoL 3350 [Miralax] 17 gm PO DAILY 11/21/24 [History] predniSONE See Taper PO DAILY 11/21/24 [History] Atorvastatin [Lipitor] 40 mg PO DAILY tab 11/26/24 [Rx] Fluconazole 200 mg PO DAILY 9 Days #9 tab 11/26/24 [Rx] Furosemide [Lasix] 40 mg PO BID@0900,1600 tab 11/26/24 [Rx] INSULIN ASPART (NovoLOG) [NovoLOG (formulary)] 0 unit SQ ACHS each 11/26/24 [Rx] Ipratropium-Albuterol Nebulize [Duoneb 0.5 mg-3 mg/3 ml Soln] 3 ml INHALATION RT-QID each 11/26/24 [Rx] Follow up Appointment(s)/Referral(s): Dayana Milian MD [STAFF PHYSICIAN] - 1 Week Keegan Fish MD [STAFF PHYSICIAN] - 2 Weeks Sherif Alston DO [Doctor of Osteopathic Medicine] - 1 Week Josias Burden DO [Primary Care Provider] - 1-2 days Patient Instructions/Handouts: Pulmonary Edema (DC), Urinary Tract Infection in Men (DC) Activity/Diet/Wound Care/Special Instructions: Activity: As tolerated. Take breaks as needed. Diet: Heart healthy and carb consistent diet. Avoid salts, or foods with hidden salts such as canned or boxed foods and frozen dinners. Extra salt makes your heart work harder and traps the fluid in your body for longer. Special Instructions: Take all of your medications as directed and remember to keep all of your doctor's appointments and follow-up as needed. Wishing you a happy and healthy new year! Thank you for allowing us to participate in your care, it was truly a pleasure having you for our patient!!! Discharge Disposition: TRANSFER TO SNF/ECF
[2024-11-26] MEDS: MAGNESIUM SULFATE-D5W PMX 1 GM in DEXTROSE/WATER 1 100ML.BAG IVPB ONE (14:52)
[2024-11-26] MEDS: MAGNESIUM OXIDE 400 MG TAB PO STA (14:52)
--- NOTE | 2024-12-01 17:30 | CDI ---
Documentation Clarification Form Date: 12/01/2024 05:08:37 PM From: Bere Jay Phone: Admit Date: 11/21/2024 02:19:00 AM Patient Name: Gino Spicer Visit Number: [id number] Discharge Date: 11/26/2024 03:43:00 PM ATTENTION: The Clinical Documentation Specialists (CDI) and [facility] Coding Staff appreciate your assistance in clarifying documentation. Please respond to the clarification below the line at the bottom and electronically sign. The CDI & [facility] Coding staff will review the response and follow-up if needed. Please note: Queries are made part of the Legal Health Record. If you have any questions, please contact the author of this message via ITS. Doctor/Provider: Bj Ortiz Conflicting documentation has been found in the medical record. As attending physician, please provide clarification. NSTEMI - 11/21 H&P, 11/21 Cardiology consult, 11/22, 11/23, 11/24, 11/25 & 11/26 Cardiology PNs Type 2 NSTEMI - 11/22, 11/23, 11/24, 11/25 IM PNs, 11/26 Discharge summary History/Risk Factors: AAA, HTN, CHF, HLD, CAD, DM 2, COPD, oxygen dependent, smoking history Clinical Indicators: Patient admitted for chest pain and SOB, and dysuria. Found to have Acute on chronic hypoxic respiratory failure, Glory UTI with Sepsis, and NSTEMI. EKG independently interpreted as sinus tachycardia with occasional supraventricular premature complexes with a ventricular rate of 120 bpm, possible right ventricular hypertrophy, QTc interval of 398 ms, with ST-segment depression noted in leads V2-V4. Troponin: 11/20 0.038, 11/21 1.290, 1.550, 1.150 Treatment: Cardiac monitoring, Cardiology consult, Started atorvastatin 40 mg daily and aspirin 81 mg daily Please clarify which diagnosis is most appropriate: [ ] NSTEMI [ ] Type 2 NSTEMI [ ] Other (please specify) [ ] Unable to determine MTDD
== END 2024-11-26 15:43 | DRG 871 ==
LOC: EC 23:10 → 1SOBS 11-21 02:18 → OBSVTOIN 11-21 02:19 → 3NCARDOBS 11-21 05:21 → 1SOBS 11-21 11:48 → 3SCARD 11-21 16:15
PROVIDERS: ADMIT Internal Medicine; ATTEND Internal Medicine
DX: B37.7 Candidal sepsis (principal); I21.A1 Myocardial infarction type 2; J96.21 Acute and chronic respiratory failure with hypoxia; J90 Pleural effusion, not elsewhere classified; L89.322 Pressure ulcer of left buttock, stage 2; E87.1 Hypo-osmolality and hyponatremia; I11.0 Hypertensive heart disease with heart failure; E11.65 Type 2 diabetes mellitus with hyperglycemia; D64.9 Anemia, unspecified; J44.89 Other specified chronic obstructive pulmonary disease; I34.1 Nonrheumatic mitral (valve) prolapse; Z95.828 Presence of other vascular implants and grafts; I50.9 Heart failure, unspecified; L89.311 Pressure ulcer of right buttock, stage 1; Z99.81 Dependence on supplemental oxygen; Z79.4 Long term (current) use of insulin; B37.49 Other urogenital candidiasis; I25.10 Atherosclerotic heart disease of native coronary artery without angina pectoris; E78.5 Hyperlipidemia, unspecified; E83.42 Hypomagnesemia; E87.6 Hypokalemia; I45.10 Unspecified right bundle-branch block; I25.82 Chronic total occlusion of coronary artery; I49.1 Atrial premature depolarization; Z79.02 Long term (current) use of antithrombotics/antiplatelets; K21.9 Gastro-esophageal reflux disease without esophagitis; Z87.19 Personal history of other diseases of the digestive system; Z87.891 Personal history of nicotine dependence; Z79.51 Long term (current) use of inhaled steroids; Z79.899 Other long term (current) drug therapy; Z79.82 Long term (current) use of aspirin; Z86.79 Personal history of other diseases of the circulatory system
CPT/HCPCS: 36415; 71045; 71046; 76604; 80048; 80053; 80061; 81001; 83036; 83735; 83880; 84145; 84484; 85025; 85027; 85610; 85730; 87086; 93005; 93306; 94640; 94760; 96365; 96366; 96367; 96368; 96375; 99285